=== PATIENT | male | born 1945 | race Caucasian/White ===

== ENCOUNTER 2018-01-29 20:09 | Inpatient (IN) | payer OTHER, MEDICARE ==
[~2018-01-29] VITALS: Ht 185.4 cm; Wt 84.5 kg
[~2018-01-29 20:09] MED LIST: ALBU0.086 INH; ALBU8I INH; HYDR-3533 PO; INSU100V3 SQ; SYMB160A INH; WARF5TAB PO
[2018-01-29] MEDS ORDERED: IOHEXOL 350 MG/ML 10 ML VIAL (for RAD DIAG) IVCONTRAST ONE (20:10)
[2018-01-29 20:12] VITALS: BP 124/58; PULSE 139; RESP 18; TEMP 101.5; O2SAT 93
[2018-01-29] MEDS ORDERED: CEFEPIME INJ 2,000 MG in SODIUM CHLORIDE 0.9% INJ 100 ML IV ONE (20:30)
[2018-01-29] MEDS ORDERED: VANCOMYCIN INJ 1,000 MG in SODIUM CHLOR 0.9% 250 ML INJ 250 ML IV ONE (20:30)
[2018-01-29] MEDS ORDERED: SODIUM CHLOR 0.9% 1000 ML INJ 1,000 ML IV ONE ×4 (20:30→23:00)
[2018-01-29] MEDS ORDERED: ACETAMINOPHEN 325 MG TAB PO ONE (20:30)
[2018-01-29] MEDS ORDERED: SYMB160A INH (20:32)
[2018-01-29] MEDS ORDERED: GUAI600T11 PO (20:32)
[2018-01-29] MEDS ORDERED: HYDR-3516 PO (20:32)
[2018-01-29] MEDS ORDERED: ALBU6.7H INH (20:32)
[2018-01-29] MEDS ORDERED: CYCL10TA PO (20:32)
[2018-01-29] MEDS ORDERED: VENL37.5 PO (20:32)
[2018-01-29] MEDS ORDERED: MAGN400T2 PO (20:32)
[2018-01-29] MEDS ORDERED: PROP20TA3 PO (20:32)
[2018-01-29] MEDS ORDERED: PROC10TA PO (20:32)
--- NOTE | 2018-01-29 20:45 | RADRPT ---
EXAM DATE: 01/29/2018 8:42 PM EDT AGE/SEX: 72 years / Male INDICATIONS: Shortness of breath. CLINICAL DATA: This is the patient's initial encounter. Patient reports that signs and symptoms have been present for 2 days and indicates a pain score of 0/10. MEDICAL/SURGICAL HISTORY: . Carcinoma, right lung. None. COMPARISON: [facility] [place], 09[place]. . FINDINGS: Increased density is identified in the right lung along the lateral pleural margin and base. Left flakita g is clear. Heart is normal in size. Postsurgical clips are identified in the right hilar region. CONCLUSION: Pleural-parenchymal opacity in the right lung which may be related to previous surgery or may represe nt pleural effusion with underlying airspace disease. Status post right thoracotomy Clear left lung. Electronically signed by: Edmund Carpenter MD 01/29/2018 8:44 PM EDT
[2018-01-29 20:51] VITALS: PULSE 135; RESP 18; O2SAT 94
[2018-01-29 20:56] VITALS: BP 123/72; PULSE 141; RESP 18; O2SAT 94
[2018-01-29 21:15] LABS: AUTOMATED NEUTROPHIL # 8.8 TH/MM3 (1.8-7.7); BASOPHIL # 0.1 TH/MM3 (0-0.2); BASOPHIL % 0.8 % (0.0-2.0); EOSINOPHIL % 0.4 % (0.0-4.0); HEMATOCRIT 26.6 % (39.0-51.0); HEMOGLOBIN 8.8 GM/DL (13.0-17.0); LYMPH % 10.5 % (9.0-44.0); LYMPHOCYTE # 1.1 TH/MM3 (1.0-4.8); MEAN CELL VOLUME 86.3 FL (80.0-100.0); MEAN CORPUSCULAR HEMOGLOBIN 28.6 PG (27.0-34.0); MEAN CORPUSCULAR HGB CONC 33.2 % (32.0-36.0); MEAN PLATELET VOLUME 8.9 FL (7.0-11.0); MONO % 2.4 % (0.0-8.0); MONOCYTE # 0.2 TH/MM3 (0-0.9); NEUT % 85.9 % (16.0-70.0); PLATELET COUNT 150 TH/MM3 (150-450); RED BLOOD COUNT 3.09 MIL/MM3 (4.50-5.90); RED CELL DISTRIBUTION WIDTH 17.3 % (11.6-17.2); WHITE BLOOD COUNT 10.3 TH/MM3 (4.0-11.0)
[2018-01-29 21:16] VITALS: BP 124/80; PULSE 133; RESP 18; TEMP 99.3; O2SAT 92
--- NOTE | 2018-01-29 21:25 | EKG ---
Date Performed: 01/29/2018 Time Performed: 20:12:35 PTAGE: 72 years EKG: SINUS TACHYCARDIA LEFT AXIS DEVIATION LOW QRS VOLTAGE IN PRECORDIAL LEADS NONSPECIFIC T-WAV E ABNORMALITY ABNORMAL ECG PREVIOUS TRACING : 04/26/2016 08.43 Compared to previous tracing, heart rate has increased, non specific T wave abnormality is now present. DOCTOR: Jaleel Garza Interpretating Date/Time 01/29/2018 21:23:30
[2018-01-29 21:26] LABS: INTERNATIONAL NORMALIZED RATIO 1.1 RATIO; PROTHROMBIN TIME - PATIENT 11.3 SEC (9.8-11.6)
--- NOTE | 2018-01-29 21:31 | PD ---
HPI Chief Complaint: Anxiety Time Seen by Provider: 20:26 Travel History International Travel<30 days: No Contact w/Intl Traveler<30days: No Traveled to known affect area: No History of Present Illness HPI 71-year-old male presents to the emergency department from home by EMS transport for generalized weakness and feeling anxious. Patient was identified in route to the hospital to be in a sinus tachycardia with a rate of 140 bpm was administered normal saline 400 cc bolus. Patient upon arrival to the emergency department was noted to have fever 10 1F patient states he has not felt well since this morning. Patient denies: headache visual disturbance sinus pressure drainage sore throat earache neck pain chest pain shortness of breath productive cough hemoptysis abdominal pain vomiting diarrhea hematemesis coffee-ground emesis melena hematochezia. Patient has colostomy secondary to previous colectomy. Patient reportedly was hospitalized in the [place] recently for GI bleed underwent scoping required transfusion but has not had any blood in his stool subsequently. No urinary symptoms no flank pain no skin rash redness warmth joint pain or swelling. Patient was unaware that he had a fever. Does not report any shaking chills. Just this felt agitated. Denies being confused or change in mentation. Family is not at bedside. Patient does have lung cancer and is currently undergoing chemotherapy every 3 weeks on Tuesday and last chemotherapy was Tuesday of this week. Patient has been on warfarin therapy in the past but denies taking any warfarin at this time. [facility] Past Medical History Narrative Medical Lung cancer chemotherapy diabetes hypertension arthritis kidney stones Crohn's colectomy with colostomy herniorrhaphy; occasional alcohol use; nursing notes reviewed Hx Anticoagulant Therapy: Yes (WARFRIN ) Arthritis: Yes Cancer: Yes (skin bcc LUNG) Cardiovascular Problems: No High Cholesterol: No Chemotherapy: Yes Diabetes: Yes Patient Takes Glucophage: No Diminished Hearing: No Endocrine: Yes Gastrointestinal Disorders: Yes (hx of chrohns ) GERD: Yes Genitourinary: Yes (hx of kidney stones) Hepatitis: No Hiatal Hernia: No Hypertension: Yes Immune Disorder: No Kidney Stones: Yes (TWICE) Musculoskeletal: Yes (hx of fractured neck ) Neurologic: No Psychiatric: No Reproductive: Yes (pt has a penile implant) Thyroid Disease: No Past Surgical History Abdominal Surgery: Yes (colon resection with colostomy hernia repair) AICD: No Body Medical Devices: penile implants abd mesh Genitourinary Surgery: Yes (penile implant) Joint Replacement: No Oral Surgery: Yes (implants) Pacemaker: No Other Surgery: Yes Social History Alcohol Use: Yes (couple times a year) Tobacco Use: No (08/2008) Substance Use: No Allergies-Medications (Allergen,Severity, Reaction): Coded Allergies: No Known Allergies (Unverified , 04/26/16) Reported Meds & Prescriptions Reported Meds & Active Scripts Active Reported Proventil Hfa 6.7 GM Inh (Albuterol Sulfate) 90 Mcg/Act Aer 2 Puff INH Q4-6H PRN Symbicort Inh (Budesonide/Formoterol Fumarate) 160-4.5 Mcg/Act Aero 2 Puff INH Q12HR Prochlorperazine Maleate 10 Mg Tab 10 Mg PO Q6H PRN Flexeril (Cyclobenzaprine HCl) 10 Mg Tab 10 Mg PO DAILY Magnesium Oxide 400 Mg Tab 400 Mg PO HS Propranolol (Propranolol HCl) 20 Mg Tab 20 Mg PO Q12HR Hydrocodone-Acetaminophen 5-325 mg Tab 1 Tab PO Q4H PRN Effexor (Venlafaxine HCl) 37.5 Mg Tab 37.5 Mg PO DAILY Mucus Relief ER (Guaifenesin) 600 Mg Tab 400 Mg PO DAILY PRN Review of Systems Except as stated in HPI: all other systems reviewed are Neg General / Constitutional: No: Fever, Chills HENT: No: Congestion Cardiovascular: No: Chest Pain or Discomfort Respiratory: No: Shortness of Breath Gastrointestinal: No: Nausea, Abdominal Pain, Hematemesis, Hematochezia Genitourinary: No: Dysuria, Flank Pain Musculoskeletal: No: Myalgias, Arthralgias Skin: No Rash Neurologic: Positive: Weakness, No: Dizziness, Syncope, Focal Abnormalities, Coordination Problem Psychiatric: Positive: Anxiety Hematologic/Lymphatic: No: Easy Bruising (stopped warfarin) Physical Exam Narrative GENERAL: Well-developed well-nourished elderly male in no acute distress no respiratory distress; HR: 139 ;RR:18 ; T: 101.5 F ;BP: 128/58;O2sat RA: 93% SKIN: Warm and dry. HEAD: Normocephalic. EYES: No scleral icterus. No injection or drainage. NECK: Supple, trachea midline. No JVD or lymphadenopathy. CARDIOVASCULAR: Regular rate and rhythm without murmurs, gallops, or rubs. RESPIRATORY: Breath sounds equal bilaterally. No accessory muscle use. GASTROINTESTINAL: Abdomen soft, non-tender, colostomy in place, nondistended. MUSCULOSKELETAL: No cyanosis, or edema. BACK: Nontender without obvious deformity. No CVA tenderness. Data Data Last Documented VS Vital Signs Date Time Temp Pulse Resp B/P (MAP) Pulse Ox O2 Delivery O2 Flow Rate FiO2 01/29/18 22:55 97.9 130 22 122/56 (78) 95 Room Air Orders Orders Sepsis Workup Initiated (01/29/18 ) Electrocardiogram (01/29/18 20:26) Complete Blood Count With Diff (01/29/18 20:26) Comprehensive Metabolic Panel (01/29/18 20:26) Prothrombin Time / Inr (Pt) (01/29/18 20:) Act Partial Throm Time (Ptt) (01/29/18 20:26) Lactic Acid Sepsis Protocol (01/29/18 20:26) Magnesium (Mg) (01/29/18 20:26) Lipase (01/29/18 20:26) Ckmb (Isoenzyme) Profile (01/29/18 20:26) Troponin I (01/29/18 20:26) Urinalysis - C+S If Indicated (01/29/18 20:26) Influenzae A/B Antigen (01/29/18 20:26) Blood Culture (01/29/18 20:26) Chest, Single Ap (01/29/18 20:26) Blood Glucose (01/29/18 20:26) Ecg Monitoring (01/29/18 20:26) Iv Access Insert/Monitor (01/29/18 20:26) Oximetry (01/29/18 20:26) Oxygen Administration (01/29/18 20:26) Acetaminophen (Tylenol) (01/29/18 20:30) Cefepime Inj (Maxipime Inj) (01/29/18 20:30) Vancomycin Inj (Vancomycin Inj) (01/29/18 20:30) Sodium Chlor 0.9% 1000 Ml Inj (Ns 1000 M (01/29/18 20:30) Type And Screen (01/29/18 21:21) Sodium Chlor 0.9% 1000 Ml Inj (Ns 1000 M (01/29/18 21:45) Ct Pulmonary Angiogram (01/29/18 ) Ondansetron Inj (Zofran Inj) (01/29/18 22:45) Sodium Chloride 0.9... W/Pantoprazole In (01/29/18 22:44) Sodium Chloride 0.9... W/Pantoprazole In (01/29/18 22:44) Metoclopramide Inj (Reglan Inj) (01/29/18 22:45) Hemoglobin (Hgb) (01/29/18 22:54) Sodium Chlor 0.9% 1000 Ml Inj (Ns 1000 M (01/29/18 23:00) Sodium Chlor 0.9% 1000 Ml Inj (Ns 1000 M (01/29/18 23:00) Ct Abd/Pel W Iv Contrast(Rout) (01/29/18 ) Metoprolol Tartrate Inj (Lopressor Inj) (01/29/18 23:30) Iohexol 350 Inj (Omnipaque 350 Inj) (01/29/18 20:10) Promethazine Inj (Phenergan Inj) (01/30/18 00:00) Red Blood Cells (Rbc) (01/29/18 23:59) Blood Product Administration (01/29/18 23:59) Sodium Chlor 0.9% 250 Ml Inj (Ns 250 Ml (01/30/18 00:00) Urinary Catheter Insert/Apply (01/29/18 23:59) Ng Gastric Tube Insert/Monitor (01/29/18 23:59) Place Ng Tube To Low Intermit (01/29/18 23:59) Admit Order (Ed Use Only) (01/30/18 ) Sewing Machine Operator Zipper / Telemetry CHARLEE.Q8H (01/30/18 00:05) Diet Npo (01/30/18 Breakfast) Activity Bed Rest (01/30/18 00:05) Notify Dr: Other (01/30/18 00:05) Labs Laboratory Tests Test 01/29/18 20:38 01/29/18 21:18 01/29/18 23:40 White Blood Count 10.3 TH/MM3 Red Blood Count 3.09 MIL/MM3 Hemoglobin 8.8 GM/DL 6.9 GM/DL Hematocrit 26.6 % Mean Corpuscular Volume 86.3 FL Mean Corpuscular Hemoglobin 28.6 PG Mean Corpuscular Hemoglobin Concent 33.2 % Red Cell Distribution Width 17.3 % Platelet Count 150 TH/MM3 Mean Platelet Volume 8.9 FL Neutrophils (%) (Auto) 85.9 % Lymphocytes (%) (Auto) 10.5 % Monocytes (%) (Auto) 2.4 % Eosinophils (%) (Auto) 0.4 % Basophils (%) (Auto) 0.8 % Neutrophils # (Auto) 8.8 TH/MM3 Lymphocytes # (Auto) 1.1 TH/MM3 Monocytes # (Auto) 0.2 TH/MM3 Eosinophils # (Auto) 0.0 TH/MM3 Basophils # (Auto) 0.1 TH/MM3 CBC Comment AUTO DIFF Differential Total Cells Counted 100 Neutrophils % (Manual) 85 % Band Neutrophils % 7 % Lymphocytes % 7 % Neutrophils # (Manual) 9.6 TH/MM3 Myelocytes 1 % Differential Comment FINAL DIFF MANUAL Platelet Estimate LOW Platelet Morphology Comment NORMAL Prothrombin Time 11.3 SEC Prothromb Time International Ratio 1.1 RATIO Activated Partial Thromboplast Time 33.2 SEC Blood Urea Nitrogen 22 MG/DL Creatinine 1.46 MG/DL Random Glucose 157 MG/DL Total Protein 6.0 GM/DL Albumin 2.3 GM/DL Calcium Level 8.1 MG/DL Magnesium Level 1.5 MG/DL Alkaline Phosphatase 98 U/L Aspartate Amino Transf (AST/SGOT) 19 U/L Alanine Aminotransferase (ALT/SGPT) 9 U/L Total Bilirubin 0.6 MG/DL Sodium Level 136 MEQ/L Potassium Level 4.4 MEQ/L Chloride Level 101 MEQ/L Carbon Dioxide Level 26.3 MEQ/L Anion Gap 9 MEQ/L Estimat Glomerular Filtration Rate 47 ML/MIN Lactic Acid Level 2.2 mmol/L 1.7 mmol/L Total Creatine Kinase 44 U/L Troponin I LESS THAN 0.02 NG/ML Lipase 77 U/L Urine Color YELLOW Urine Turbidity CLEAR Urine pH 6.5 Urine Specific [place] 1.022 Urine Protein 30 mg/dL Urine Glucose (UA) NEG mg/dL Urine Ketones TRACE mg/dL Urine Occult Blood TRACE Urine Nitrite NEG Urine Bilirubin NEG Urine Urobilinogen LESS THAN 2.0 MG/DL Urine Leukocyte Esterase SMALL Urine RBC 1 /hpf Urine WBC 5 /hpf Urine Squamous Epithelial Cells 3 /hpf Urine Renal Epithelial Cells <1 /hpf Urine Mucus FEW /lpf Microscopic Urinalysis Comment CATH-CULT NOT IND MDM Medical Decision Making Medical Screen Exam Complete: Yes Emergency Medical Condition: Yes Medical Record Reviewed: Yes (Cholecystectomy 04/27/16 Dr. 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 Status post right thoracotomy Clear left lung. CBC & BMP Diagram 01/29/18 20:38 Total Protein 6.0 L, Albumin 2.3 L, Calcium Level 8.1 L, Magnesium Level 1.5, Alkaline Phosphatase 98, Aspartate Amino Transf (AST/SGOT) 19, Alanine Aminotransferase (ALT/SGPT) 9 L, Total Bilirubin 0.6 Vital Signs Date Time Temp Pulse Resp B/P (MAP) Pulse Ox O2 Delivery O2 Flow Rate FiO2 01/29/18 21:16 99.3 133 18 124/80 (95) 92 Room Air 01/29/18 20:56 141 18 123/72 (89) 94 Room Air 01/29/18 20:51 135 18 94 Room Air 01/29/18 20:51 93 Room Air 01/29/18 20:12 101.5 139 18 124/58 (80) 93 Differential Diagnosis Sepsis, pneumonia, enteritis, UTI, bacteremia, neutropenia Narrative Course IV access obtained patient placed on log chipper operator with continuous pulse oximetry; specimens collected for sepsis protocol patient given cefepime 2 g IV piggyback and vancomycin 1 g IV piggyback acetaminophen 650 mg and a bolus of normal saline Patient feeling improved additional liter of normal saline administered for total 30 cc/kg bolus; chest x-ray shows right pleural effusion left lower lung infiltrate. Patient identified to have normal total white cell count however does have elevated lactic acid meets sepsis criteria has received IV antibiotics and temperature has decreased after antipyretic therapy at bedside reports that yesterday he had his right-sided pleural effusion drained at home has an indwelling drain that is indwelling for intermittent thoracentesis Patient sent for CT pulmonary angiogram Critical Care Narrative Aggregate critical care time was 35 minutes. Time to perform other separately billable procedures was not included in the critical care time. My time did not include minutes spent treating any other patients simultaneously or on activities that did not directly contribute to the patient's treatment. The services I provided to this patient were to treat and/or prevent clinically significant deterioration that could result in: Septic shock, hemorrhagic shock , I provided critical care services requiring my management, as noted below: Chart data review, documentation time, medication orders and management, vital sign assessments/reviewing monitor data, ordering and reviewing lab tests, ordering and interpreting/reviewing x-rays and diagnostic studies, care of the patient and discussion of the patient with the admitting physicians. Sepsis Criteria SIRS Criteria (2 or more): Temp > 100.9 or < 96.8, Heart rate over 90 Sepsis Criteria (SIRS+source): Infect source susp/known (lung) Severe Sepsis (+one): Lactate >2 Physician Communication Physician Communication discussed with and accepted by Dr Tian Diagnosis Primary Impression: Sepsis Additional Impressions: Pleural effusion, right Adenocarcinoma of lung Lung infiltrate Admitting Information Admitting Physician Requests: Admit Awa Archibald MD January 29, 2018 21:30
[2018-01-29 21:34] LABS: ALBUMIN 2.3 GM/DL (3.4-5.0); AST (GOT) 19 U/L (15-37); BICARBONATE 26.3 MEQ/L (21.0-32.0); BLOOD UREA NITROGEN 22 MG/DL (7-18); CALCIUM 8.1 MG/DL (8.5-10.1); CHLORIDE 101 MEQ/L (98-107); CREATININE 1.46 MG/DL (0.60-1.30); GLOMERULAR FILTRATION RATE 47 ML/MIN (>89); GLUCOSE,RANDOM 157 MG/DL (74-106); MAGNESIUM 1.5 MG/DL (1.5-2.5); SODIUM (NA) 136 MEQ/L (136-145)
[2018-01-29 21:35] LABS: ALT (GPT) 9 U/L (12-78)
[2018-01-29 21:38] LABS: LACTIC ACID SEPSIS PROTOCOL 2.2 mmol/L (0.4-2.0)
[2018-01-29 21:39] LABS: ALKALINE PHOSPHATASE 98 U/L (45-117); TOTAL BILIRUBIN ADULT 0.6 MG/DL (0.2-1.0); TROPONIN I LESS THAN 0.02 NG/ML (0.02-0.05)
[2018-01-29 21:57] LABS: BILIRUBIN, URINE NEG (NEG); BLOOD, URINE TRACE (NEG); GLUCOSE,URINE NEG (NEG); KETONE, URINE TRACE mg/dL (NEG); MUCUS URINE FEW /lpf (OCC); NITRITE,URINE NEG (NEG); PH, URINE 6.5 (5.0-8.5); RENAL EPITHELIAL CELLS <1 /hpf; SQUAMOUS EPITHELIAL CELL URINE 3 /hpf (0-5); URINE COLOR YELLOW (YELLW/STRAW); URINE LEUKOCYTE ESTERASE SMALL (NEG)
[2018-01-29 22:10] LABS: BANDS 7 % (0-6); LYMPHOCYTES 7 % (9-44); MYELOCYTES 1 % (0-0); NEUTROPHIL # MANUAL DIFF 9.6 TH/MM3 (1.8-7.7); POLYS (SEG NEUTROPHILS) 85 % (16-70)
[2018-01-29 22:30] VITALS: BP 123/66; PULSE 120; RESP 18; O2SAT 95
[2018-01-29] MEDS ORDERED: PANTOPRAZOLE INJ 80 MG in SODIUM CHLORIDE 0.9% INJ 35 ML IV ONE (22:44)
[2018-01-29] MEDS ORDERED: ONDANSETRON HCL 4 MG/2 ML VIAL IV PUSH ONE (22:45)
[2018-01-29] MEDS ORDERED: METOCLOPRAMIDE HCL 10 MG/2 ML VIAL IV PUSH ONE (22:45)
[2018-01-29 22:55] VITALS: BP 122/56; PULSE 130; RESP 22; TEMP 97.9; O2SAT 95
[2018-01-29] MEDS ORDERED: SODIUM CHLORID 0.9% 500 ML INJ 500 ML IV ONE (23:00)
[2018-01-29] MEDS ORDERED: METOPROLOL TARTRATE 5 MG/5 ML VIAL IV PUSH ONE (23:30)
--- NOTE | 2018-01-29 23:36 | RADRPT ---
EXAM DATE: 01/29/2018 11:22 PM EDT AGE/SEX: 72 years / Male INDICATIONS: Shortness of breath. History of lung cancer. CLINICAL DATA: This is the patient's initial encounter. Patient reports that signs and symptoms have been present for 1 day and indicates a pain score of 0/10. MEDICAL/SURGICAL HISTORY: Carcinoma, lung. Diabetes mellitus type II. Crohn?s disease. Colon rese ction. Inguinal hernia repair. Right thoracotomy RADIATION DOSE: 18.36 CTDI (mGy) COMPARISON: [facility] – [place], [place] THORAX W/O CONTRAST, 09/12/2014. . TECHNIQUE: Volumetric scanning was performed using a multi-row detector CT scanner during bolus infu vivian of 95 ml Omnipaque 350 (iohexol) nonionic water-soluble contrast as a cumulative dose for multi ple exams. The data was post processed with a variety of visualization algorithms including full volu me maximum intensity projection and sliding thin slab reformation. Using automated exposure control and adjustment of the mA and/or kV according to patient size, radiation dose was kept as low as reaso nably achievable to obtain optimal diagnostic quality images. FINDINGS: There is a stent within the brachiocephalic vein on the right side and part of it is not opacified pr obably due to contrast not getting inside this stent since injection was done on the left side. There is a large right pleural effusion without significant pleural thickening highly suspicious for pleur al-based metastatic disease in maximum thickness measures almost 1 cm. Hazy parenchymal opacities pre sent in the left upper lobe posteriorly and there are COPD changes in the lungs. There is also parenc hymal consolidation in right perihilar area partially extending into the right upper lobe. Possibilit y of underlying mass in this location should also be entertained and overall masslike area measures 4 .6 cm in size. There is a cyst within the spleen measures almost 3 cm with an approximate 2 cm cyst i n the left kidney. There is no evidence of PE for technique. CONCLUSION: 1. There is no evidence of PE for technique. 2. Loculated right pleural effusion with pleural thickening highly suspicious for pleural-based meta static disease. 3. Bilateral parenchymal infiltrates may represent pneumonia and on the right side may be partially due to compressed lung and/or postobstructive pneumonitis. Masslike area is seen in right upper lobe extending to the right hilum. Electronically signed by: Arnold Guevara MD 01/29/2018 11:35 PM EDT
--- NOTE | 2018-01-29 23:45 | RADRPT ---
EXAM DATE: 01/29/2018 11:24 PM EDT AGE/SEX: 72 years / Male INDICATIONS: Nausea and vomting. History of lung cancer. CLINICAL DATA: This is the patient's initial encounter. Patient reports that signs and symptoms have been present for 1 day and indicates a pain score of 0/10. MEDICAL/SURGICAL HISTORY: Carcinoma, lung. Diabetes mellitus type II. Crohn?s disease. Colon resection. Right thoracotomy ORAL CONTRAST: No oral contrast ingested. RADIATION DOSE: 11.20 CTDI (mGy) [place] [facility] [place]/O CONTRAST, 04/26/2016. . TECHNIQUE: Multiple contiguous axial images were obtained through the abdomen and pelvis following b olus infusion of 95 ml Omnipaque 350 (iohexol) nonionic water-soluble contrast as a cumulative dose for multiple exams. No oral contrast ingested. Using automated exposure control and adjustment of t he mA and/or kV according to patient size, the radiation dose was kept as low as reasonably achievabl e to obtain optimal diagnostic quality images. FINDINGS: Abdomen CT: The liver, pancreas, adrenals are unremarkable. Approximate 2.9 cm cyst is present in the posterior p ortion of the spleen and benign in appearance with a simple cyst in the left kidney measures almost 2 .9 cm in size not changed since 2016. There are additional tiny cysts in the kidneys bilaterally. The re is no evidence for any appreciable pathological adenopathy, free fluid, or bowel obstruction. Ther e are findings in the lower chest discussed on the patient's chest CT. There are atherosclerotic drew cifications involving the aorta and iliac arteries chronic in nature. Small hiatal hernia is seen. Pelvic CT: There is no evidence for mass, abscess formation, or any significant adenopathy within the pelvis. P enile implant is present. Osteotomy site is present on the left side and there is a mesh in the anter ior abdominal wall. There is vague area of approximate 1.8 cm sclerosis involving the left sacrum dawn r the SI joint posteriorly nonspecific in regards to metastatic disease with adjacent degenerative ch ana luisa in the SI joint not significantly changed since 2015 CONCLUSION: Chronic and postsurgical changes and otherwise unremarkable. Electronically signed by: Arnold Guevara MD 01/29/2018 11:44 PM EDT
[2018-01-30] VITALS (39 sets, daily range): BP systolic 99–146; BP diastolic 50–90; PULSE 89–128; RESP 16–29; TEMP 97.2–99.1; O2SAT 92–98
[2018-01-30] MEDS ORDERED: PROMETHAZINE INJ 25 MG/ML VIAL IM ONE
[2018-01-30] MEDS ORDERED: SODIUM CHLOR 0.9% 250 ML INJ 250 ML IV ONE
[2018-01-30] MEDS: PANTOPRAZOLE INJ 80 MG in SODIUM CHLORIDE 0.9% INJ 100 ML IV SCH ×3 (00:04→18:31)
[2018-01-30] MEDS ORDERED: SODIUM CHLOR 0.9% 1000 ML INJ 1,000 ML IV SCH (00:29)
[2018-01-30] MEDS ORDERED: SODIUM CHLOR 0.9% 1000 ML INJ 1,000 ML IV ONE ×2 (00:29)
[2018-01-30] MEDS ORDERED: SODIUM CHLOR 0.9% 1000 ML INJ 100 ML IV ONE (00:29)
[2018-01-30] MEDS ORDERED: LACTULOSE SYRUP 20 GM/30 ML CUP PO PRN (00:30)
[2018-01-30] MEDS ORDERED: MAGNESIUM HYDROXIDE SUSP 30 ML CUP PO PRN (00:30)
[2018-01-30] MEDS ORDERED: guaiFENesin E.R. 600 MG TAB PO PRN (00:30)
[2018-01-30] MEDS ORDERED: RESP: ALBUTEROL 2.5 MG/IPRATROPIUM 0.5 MG NEB (PRN) INH (00:30)
[2018-01-30] MEDS ORDERED: NURSING INFORMATION XX SCH (00:30)
[2018-01-30] MEDS ORDERED: BISACODYL 10 MG SUPP RECTAL PRN (00:30)
[2018-01-30] MEDS ORDERED: ONDANSETRON HCL 4 MG/2 ML VIAL IV PUSH PRN (00:30)
[2018-01-30] MEDS ORDERED: PROCHLORPERAZINE MALEATE 10 MG TAB PO PRN (00:30)
[2018-01-30] MEDS ORDERED: SENNOSIDES 8.6 MG TAB PO PRN (00:30)
[2018-01-30] MEDS ORDERED: ACETAMINOPHEN 325 MG TAB PO PRN (00:30)
[2018-01-30] MEDS ORDERED: Vancomycin Consult Pharmacy 1 EA OTHER SCH (00:30)
[2018-01-30] MEDS ORDERED: CHLORHEXIDINE GLUCONATE 2 % 1 PACK (2 CLOTHS) TOP PRN (00:30)
--- NOTE | 2018-01-30 00:59 | HHI.HP ---
[facility] Service Critical Care Medicine Primary Care Physician [facility] Admission Diagnosis sepsis; pneumonia; upper gi bleed w/ anemia; Lung CA Diagnosis: Travel History International Travel<30 Days: No Contact w/Intl Traveler <30 Da: No Traveled to Known Affected Are: No History of Present Illness 71-year-old male presents for generalized weakness and feeling anxious. Patient was identified in route to the hospital to be in a sinus tachycardia with a rate of 140 bpm was administered normal saline 400 cc bolus. In the emergency department he was found to be febrile with a temperature of 101F. The patient states he has not felt well since this morning. He has colostomy secondary to previous colectomy due to Crohn's disease. Patient reportedly was hospitalized in the [place] recently for GI bleed underwent scoping required transfusion but has not had any blood in his stool subsequently. No urinary symptoms no flank pain no skin rash redness warmth joint pain or swelling. Patient was unaware that he had a fever. Patient does have a lung cancer and is currently undergoing chemotherapy every 3 weeks on Tuesday and last chemotherapy was Tuesday of this week. Patient has been on warfarin therapy in the past but denies taking any warfarin at this time. He denies: headache visual disturbance sinus pressure drainage sore throat earache neck pain chest pain shortness of breath productive cough hemoptysis abdominal pain vomiting diarrhea hematemesis coffee-ground emesis melena hematochezia. In the emergency department he vomited large amounts fluid that is positive for Hemoccult. The fluid boluses resuscitation his last H&H was below 7 . He is getting transfused with PRBCs Review of Systems Constitutional: COMPLAINS OF: Diaphoretic episodes, Fatigue, DENIES: Fever, Weight gain, Weight loss, Chills, Dizziness, Change in appetite, Night Sweats Endocrine: DENIES: Heat/cold intolerance, Polydipsia, Polyuria, Polyphagia Eyes: DENIES: Blurred vision, Diplopia, Eye inflammation, Eye pain, Vision loss , Photosensitivity, Double Vision Ears, nose, mouth, throat: DENIES: Tinnitus, Hearing loss, Vertigo, Nasal discharge, Oral lesions, Throat pain, Hoarseness, Ear Pain, Running Nose, Epistaxis, Sinus Pain, Toothache, Odynophagia Respiratory: DENIES: Apneas, Cough, Snoring, Wheezing, Hemoptysis, Sputum production, Shortness of breath Cardiovascular: DENIES: Chest pain, Palpitations, Syncope, Dyspnea on Exertion , PND, Lower Extremity Edema, Orthopnea, Claudication Gastrointestinal: COMPLAINS OF: Nausea, Vomiting, DENIES: Abdominal pain, Black stools, Bloody stools, Constipation, Diarrhea, Difficulty Swallowing, Anorexia Genitourinary: DENIES: Sexual dysfunction, Urinary frequency, Urinary incontinence, Urgency, Hematuria, Dysuria, Nocturia, Penile Discharge, Testicular Pain, Testicular Swelling Musculoskeletal: DENIES: Joint pain, Muscle aches, Stiffness, Joint Swelling, Back pain, Neck pain Integumentary: DENIES: Abnormal pigmentation, Nail changes, Pruritus, Rash Hematologic/lymphatic: DENIES: Bruising, Lymphadenopathy Immunologic/allergic: DENIES: Eczema, Urticaria Neurologic: DENIES: Abnormal gait, Headache, Localized weakness, Paresthesias, Seizures, Speech Problems, Tremor, Poor Balance Psychiatric: DENIES: Anxiety, Confusion, Mood changes, Depression, Hallucinations, Agitation, Suicidal Ideation, Homicidal Ideation, Delusions Past Family Social History Allergies: Coded Allergies: No Known Allergies (Unverified , 04/26/16) Past Medical History Carcinoma of the lung Crohn's disease History of superior vena cava syndrome COPD Past Surgical History IVC filter Colon resection Penile implant Superior vena cava stent Reported Medications Reported Meds & Active Scripts Active Reported Proventil Hfa 6.7 GM Inh (Albuterol Sulfate) 90 Mcg/Act Aer 2 Puff INH Q4-6H PRN Symbicort Inh (Budesonide/Formoterol Fumarate) 160-4.5 Mcg/Act Aero 2 Puff INH Q12HR Prochlorperazine Maleate 10 Mg Tab 10 Mg PO Q6H PRN Flexeril (Cyclobenzaprine HCl) 10 Mg Tab 10 Mg PO DAILY Magnesium Oxide 400 Mg Tab 400 Mg PO HS Propranolol (Propranolol HCl) 20 Mg Tab 20 Mg PO Q12HR Hydrocodone-Acetaminophen 5-325 mg Tab 1 Tab PO Q4H PRN Effexor (Venlafaxine HCl) 37.5 Mg Tab 37.5 Mg PO DAILY Mucus Relief ER (Guaifenesin) 600 Mg Tab 400 Mg PO DAILY PRN Active Ordered Medications Current Medications Medications (Trade) Dose Ordered Sig/Felicia Route PRN Reason Start Time Stop Time Status Last Admin Dose Admin Pantoprazole Sodium 80 mg/ Sodium Chloride 100 ml @ 10 mls/hr Q10H IV 01/29/18:44 01/30/18 00:04 Sodium Chloride 250 ml @ 15 mls/hr ONCE ONCE IV 01/30/18 00:00 01/30/18 16:39 Budesonide/ Formoterol Fumarate (Symbicort 160-4.5 Mcg Inh) 2 puff Q12HR INH 01/30/18 09:00 Guaifenesin (Mucinex Er) 400 mg DAILY PRN PO CHEST CONGESTION AND/OR COUGH 01/30/18 00:30 Prochlorperazine Maleate (Compazine) 10 mg Q6H PRN PO NAUSEA OR VOMITING 01/30/18 00:30 Venlafaxine HCl (Effexor Xr) 37.5 mg DAILY PO 01/30/18 09:00 Sodium Chloride 1,000 ml @ 154 mls/hr Q6H30M IV 01/30/18 00:29 Sodium Chloride (NS Flush) 2 ml UNSCH PRN IV FLUSH FLUSH AFTER USING IV ACCESS 01/30/18 00:30 Sodium Chloride (NS Flush) 2 ml BID IV FLUSH 01/30/18 09:00 Acetaminophen (Tylenol) 650 mg Q6H PRN PO PAIN 1- 5 AND/OR FEVER >101F 01/30/18 00:30 Hydromorphone HCl (Dilaudid Pf Inj) 1 mg Q4H PRN IV PUSH PAIN SCALE 6 TO 10 01/30/18 00:30 Pantoprazole Sodium (Protonix Inj) 40 mg Q12H IV PUSH 01/30/18 00:30 Ondansetron HCl (Zofran Inj) 4 mg Q6H PRN IV PUSH NAUSEA OR VOMITING 01/30/18 00:30 Temazepam (Restoril) 15 mg HS PRN PO INSOMNIA 01/30/18 00:30 Albuterol/ Ipratropium (Duoneb Neb) 1 ampule Q6HR NEB INH 01/30/18 04:00 Albuterol/ Ipratropium (Duoneb Neb) 1 ampule Q2HR NEB PRN INH WHEEZING 01/30/18 00:30 Miscellaneous Information ([facility] Nursing Information) 1 [id number] XX 01/30/18 00:30 Chlorhexidine Gluconate (Chlorhexidine 2% Cloth) 3 pack Taper DAILY@04 TOP 01/30/18 04:00 01/26/19 03:59 Chlorhexidine Gluconate (Chlorhexidine 2% Cloth) 3 pack UNSCH PRN TOP HYGIENIC CARE 01/30/18 00:30 Senna/Docusate Sodium (Susan-Colace) 1 tab BID PO 01/30/18 09:00 Magnesium Hydroxide (Milk Of Magnesia Liq) 30 ml Q12H PRN PO Mild constipation 01/30/18 00:30 Sennosides (Senokot) 17.2 mg Q12H PRN PO Moderate constipation 01/30/18 00:30 Bisacodyl (Dulcolax Supp) 10 mg DAILY PRN RECTAL SEVERE CONSITIPATION / IF NPO 01/30/18 00:30 Lactulose (Lactulose Liq) 30 ml DAILY PRN PO SEVERE CONSITIPATION/ IF PO 01/30/18 00:30 Pharmacy Profile Note 0 ml @ 0 mls/hr UNSCH XX 01/30/18 00:30 UNV Piperacillin Sod/ Tazobactam Sod 100 ml @ 200 mls/hr Q6H IV 01/30/18 00:30 Sodium Chloride 1,000 ml @ 1,000 mls/hr Q1H ONCE IV 01/30/18 00:29 01/30/18 01:28 Sodium Chloride 1,000 ml @ 1,000 mls/hr Q1H ONCE IV 01/30/18 00:29 01/30/18 01:28 Family History Brother at 40 from lung cancer Family history of stomach cancer Social History The patient quit smoking in 9 years ago, used to smoke 2 packs per day for 40 years Social drinking No illicit drug abuse Physical Exam Vital Signs Vital Signs Date Time Temp Pulse Resp B/P (MAP) Pulse Ox O2 Delivery O2 Flow Rate FiO2 01/30/18 00:29 128 18 129/59 (82) 95 Room Air 01/29/18 22:55 97.9 130 22 122/56 (78) 95 Room Air 01/29/18 22:30 120 18 123/66 (85) 95 Room Air 01/29/18 21:16 99.3 133 18 124/80 (95) 92 Room Air 01/29/18 20:56 141 18 123/72 (89) 94 Room Air 01/29/18 20:51 135 18 94 Room Air 01/29/18 20:51 93 Room Air 01/29/18 20:12 101.5 139 18 124/58 (80 93 Physical Exam GENERAL: Well-nourished, well-developed patient. SKIN: Warm and dry. HEAD: Normocephalic. EYES: No scleral icterus. No injection or drainage. NECK: Supple, trachea midline. No JVD or lymphadenopathy. CARDIOVASCULAR: Regular rate and rhythm without murmurs, gallops, or rubs. RESPIRATORY: Breath sounds equal bilaterally. No accessory muscle use. GASTROINTESTINAL: Abdomen soft, non-tender, nondistended. Colostomy in place without signs of infection or inflammation MUSCULOSKELETAL: No cyanosis, or edema. BACK: Nontender without obvious deformity. NEURO EXAM: GCS: 15 Mental Status: The patient is alert and oriented to person, place, and time with normal speech. Cranial Nerves: Visual acuity intact bilaterally. Visual alvarado normal in all quadrants. Pupils are round, reactive to light. Extraocular movements are intact without ptosis. Hearing is normal bilaterally. Voice is normal. Tongue protrudes midline and moves symmetrically. Laboratory Laboratory Tests Test 01/29/18 20:38 01/29/18 21:18 01/29/18 23:40 White Blood Count 10.3 Red Blood Count 3.09 Hemoglobin 8.8 6.9 Hematocrit 26.6 Mean Corpuscular Volume 86.3 Mean Corpuscular Hemoglobin 28.6 Mean Corpuscular Hemoglobin Concent 33.2 Red Cell Distribution Width 17.3 Platelet Count 150 Mean Platelet Volume 8.9 Neutrophils (%) (Auto) 85.9 Lymphocytes (%) (Auto) 10.5 Monocytes (%) (Auto) 2.4 Eosinophils (%) (Auto) 0.4 Basophils (%) (Auto) 0.8 Neutrophils # (Auto) 8.8 Lymphocytes # (Auto) 1.1 Monocytes # (Auto) 0.2 Eosinophils # (Auto) 0.0 Basophils # (Auto) 0.1 CBC Comment AUTO DIFF Differential Total Cells Counted 100 Neutrophils % (Manual) 85 Band Neutrophils % 7 Lymphocytes % 7 Neutrophils # (Manual) 9.6 Myelocytes 1 Differential Comment FINAL DIFF MANUAL Platelet Estimate LOW Platelet Morphology Comment NORMAL Prothrombin Time 11.3 Prothromb Time International Ratio 1.1 Activated Partial Thromboplast Time 33.2 Blood Urea Nitrogen 22 Creatinine 1.46 Random Glucose 157 Total Protein 6.0 Albumin 2.3 Calcium Level 8.1 Magnesium Level 1.5 Alkaline Phosphatase 98 Aspartate Amino Transf (AST/SGOT) 19 Alanine Aminotransferase (ALT/SGPT) 9 Total Bilirubin 0.6 Sodium Level 136 Potassium Level 4.4 Chloride Level 101 Carbon Dioxide Level 26.3 Anion Gap 9 Estimat Glomerular Filtration Rate 47 Lactic Acid Level 2.2 1.7 Total Creatine Kinase 44 Troponin I LESS THAN 0.02 Lipase 77 Urine Color YELLOW Urine Turbidity CLEAR Urine pH 6.5 Urine Specific [place] 1.022 Urine Protein 30 Urine Glucose (UA) NEG Urine Ketones TRACE Urine Occult Blood TRACE Urine Nitrite NEG Urine Bilirubin NEG Urine Urobilinogen LESS THAN 2.0 Urine Leukocyte Esterase SMALL Urine RBC 1 Urine WBC 5 Urine Squamous Epithelial Cells 3 Urine Renal Epithelial Cells <1 Urine Mucus FEW Microscopic Urinalysis Comment CATH-CULT NOT IND Date/Time Source Procedure Growth Status 01/29/18 20:30 Blood Peripheral Aerobic Blood Culture Pending Received 01/29/18 20:30 Blood Peripheral Anaerobic Blood Culture Pending Received 01/29/18 20:39 Nasal Washing Influenza Types A,B Antigen (JOSE) - Final NEGATIVE FOR FLU A AND B ANTIGEN.... Complete Result Diagram: 01/29/18 2340 01/29/182037 Imaging Last 24 hours Impressions Chest X-Ray 01/29/182025 Signed Impressions: CONCLUSION: Pleural-parenchymal opacity in the right lung which may be related to previous surgery or may represent pleural effusion with underlying airspace disease. Status post right thoracotomy Clear left lung. Caprini VTE Risk Assessment Caprini VTE Risk Assessment: Mod/High Risk (score >= 2) VTE Pharm Contraindication: Hemorrhage Caprini Risk Assessment Model Point Value = 1 Point Value = 2 Point Value = 3 Point Value = 5 Age 41-60 Minor surgery BMI > 25 kg/m2 Swollen legs Varicose veins or History of unexplained or recurrent spontaneous Oral contraceptives or hormone replacement Sepsis (< 1 month) Serious lung disease, including pneumonia (< 1 month) Abnormal pulmonary function Acute myocardial infarction Congestive heart failure (< 1 month) History of inflammatory bowel disease Medical patient at bed rest Age 61-74 Arthroscopic surgery Major open surgery (> 45 min) Laparoscopic surgery (> 45 min) Malignancy Confined to bed (> 72 hours) Immobilizing plaster cast Central venous access Age >= 75 History of VTE Family history of VTE Factor V Leiden Prothrombin [id number] Lupus anticoagulant Anticardiolipin antibodies Elevated serum homocysteine Heparin-induced thrombocytopenia Other congenital or acquired thrombophilia Stroke (< 1 month) Elective arthroplasty Hip, pelvis, or leg fracture Acute spinal cord injury (< 1 month) Prophylaxis Regimen Total Risk Factor Score Risk Level Prophylaxis Regimen 0-1 Low Early ambulation 2 Moderate Order ONE of the following: *Sequential Compression Device (SCD) *Heparin 5000 units SQ BID 3-4 Higher Order ONE of the following medications: *Heparin 5000 units SQ TID *Enoxaparin/Lovenox 40 mg SQ daily (WT < 150 kg, CrCl > 30 mL/min) *Enoxaparin/Lovenox 30 mg SQ daily (WT < 150 kg, CrCl > 10-29 mL/min) *Enoxaparin/Lovenox 30 mg SQ BID (WT < 150 kg, CrCl > 30 mL/min) AND/OR *Sequential Compression Device (SCD) 5 or more Highest Order ONE of the following medications: *Heparin 5000 units SQ TID (Preferred with Epidurals) *Enoxaparin/Lovenox 40 mg SQ daily (WT < 150 kg, CrCl > 30 mL/min) *Enoxaparin/Lovenox 30 mg SQ daily (WT < 150 kg, CrCl > 10-29 mL/min) *Enoxaparin/Lovenox 30 mg SQ BID (WT < 150 kg, CrCl > 30 mL/min) AND *Sequential Compression Device (SCD) Assessment and Plan Assessment and Plan Sepsis -Unclear source -Broad-spectrum antibiotics -Urine culture, blood culture, sputum culture -De-escalate based sensitivity Hypertension -Due to above -Aggressive IV fluid resuscitation GI bleed -Protonix IV twice daily -Gastroenterology consultation COPD -DuoNeb scheduled and as needed -No indication for steroids at this time Lung cancer -Oncology consultation DVT GI prophylaxis -Damián's and SCDs -Severe anemia with positive occult blood in the emesis -Protonix IV twice daily Critical Care: The total critical care time was 35 minutes. Time to perform other separately billable procedures was not included in the critical care time. Alireza Tian MD January 30, 2018 12:59 am
[2018-01-30] MEDS: HYDROmorphone HCL PF 2 MG/ML VIAL IV PUSH PRN ×2 (01:48→07:41)
[2018-01-30] MEDS ORDERED: VANCOMYCIN 1 GM/200 ML PREMIX IV SCH (02:00)
[2018-01-30] MEDS: RESP: ALBUTEROL 2.5 MG/IPRATROPIUM 0.5 MG NEB (SCH) INH ×4 (04:36→20:39)
[2018-01-30] MEDS: PIPERACIL-TAZO 4.5 GM PREMIX 100 ML IV SCH ×3 (06:25→18:16)
--- NOTE | 2018-01-30 07:51 | EKG ---
Date Performed: 01/30/2018 Time Performed: 06:48:12 PTAGE: 72 years EKG: SINUS TACHYCARDIA WITH OCCASIONAL VENTRICULAR PREMATURE COMPLEXES ABNORMAL RHYTHM ECG PREVIOUS TRACING : 01/29/2018 20.12 No significant change from previous tracing noted. DOCTOR: Jaleel Garza Interpretating Date/Time 01/30/2018 07:49:27
--- NOTE | 2018-01-30 08:45 | RADRPT ---
EXAM DATE: 01/30/2018 8:41 AM EDT AGE/SEX: 72 years / Male INDICATIONS: Evaluate for respiratory failure. CLINICAL DATA: This is the patient's subsequent encounter. Patient reports that signs and symptoms h ave been present for 2 days and indicates a pain score of 0/10. MEDICAL/SURGICAL HISTORY: Carcinoma, lung. None. COMPARISON: [facility] [place] CHEST SINGLE AP, 01/29/2018. . FINDINGS: A single AP view of the chest demonstrates the moderate right pleural effusion. There is some interst itial prominence. Cardiomegaly. Nasogastric tube with tip below the inferior margin the imaged but li jerod in stomach. The cardiomediastinal contours are unremarkable. Osseous structures are intact. St ent overlies the right subclavian region. CONCLUSION: 1. Moderate right pleural effusion and right basilar consolidation. 2. Slight interstitial edema. Electronically signed by: Kaden Hurst MD 01/30/2018 8:44 AM EDT
[2018-01-30] MEDS: BUDESONIDE-FORMOTEROL 160/4.5 MCG INHALER INH SCH ×2 (09:14→21:00)
[2018-01-30] MEDS: VENLAFAXINE HCL XR 37.5 MG CAP PO SCH (09:14)
[2018-01-30] MEDS ORDERED: HYDROmorphone HCL PF 2 MG/ML VIAL IV PUSH PRN (09:15)
[2018-01-30] MEDS ORDERED: FUROSEMIDE 40 MG/4 ML VIAL IV PUSH ONE (09:15)
[2018-01-30] MEDS: SODIUM CHLORIDE 0.9% FLUSH 10 ML FLUSH IV FLUSH PRN (09:19)
[2018-01-30] MEDS: SODIUM CHLORIDE 0.9% FLUSH 10 ML FLUSH IV FLUSH SCH ×2 (09:19→20:58)
[2018-01-30] MEDS: DOCUSATE SODIUM 50 MG/SENNA 8.6 MG TAB PO SCH ×2 (09:19→21:00)
--- NOTE | 2018-01-30 09:38 | PD.CONS ---
HPI History of Present Illness This is a 72 year old M with GI history significant for Crohns S/P colectomy with colostomy who presented to the ER yesterday with complaints of weakness. Pt received Dilaudid prior to my exam and is very lethargic, falls asleep after one word making history difficult to obtain. Pt was found to be tachycardic, febrile, and anemic. There was reports of multiple episodes of emesis in the ER , with some BRB noted and Hemoccult testing was positive. Pt has lung cancer and is receiving chemotherapy every three weeks, last treatment was last Tuesday. Unsure of history of anemia or need for blood transfusions while on chemotherapy. He does reports was previously seeing a [facility] doctor at the [facility] but has not followed up with any GI doctor recently. He did not provide when his last colonoscopy or EGD was. Colostomy to LLQ with semi-formed brown stool. Per RN he has had no emesis, currently has NGT to LIWS with small amount of green drainage. (Ryanne Oro) PFSH Past Medical History Crohns Superior vena cava Syndrome Lung cancer COPD Past Surgical History IVC filter Colon resection- colostomy Penile implant Superior vena cava stent (Ryanne Oro) Coded Allergies: No Known Allergies (Unverified , 04/26/16) Social History Unable to obtain (Ryanne Oro) Review of Systems Gastrointestinal: COMPLAINS OF: Nausea, Vomiting, DENIES: Abdominal pain, Bloody stools (Ryanne Oro) GI Exam Vitals I&O Vital Signs Date Time Temp Pulse Resp B/P (MAP) Pulse Ox O2 Delivery O2 Flow Rate FiO2 01/30/18 08:42 95 Nasal Cannula 3.00 01/30/18 07:45 98.8 115 16 132/60 94 01/30/18 07:30 97.9 115 25 143/63 98 01/30/18 06:00 113 01/30/18 05:30 98.8 111 16 127/68 96 01/30/18 04:46 98.0 110 20 125/50 96 01/30/18 04:37 96 Nasal Cannula 3.00 01/30/18 04:00 113 01/30/18 04:00 97.2 89 22 134/62 (86) 98 01/30/18 03:00 16 01/30/18 02:00 110 01/30/18 01:40 97.9 126 18 129/61 96 01/30/18 01:08 01/30/18 01:05 97.9 124 22 127/59 (81) 96 01/30/18 00:29 128 18 129/59 (82) 95 Room Air 01/29/18 22:55 97.9 130 22 122/56 (78) 95 Room Air 01/29/18 22:30 120 18 123/66 (85) 95 Room Air 01/29/18 21:16 99.3 133 18 124/80 (95) 92 Room Air 01/29/18 20:56 141 18 123/72 (89) 94 Room Air 01/29/18 20:51 135 18 94 Room Air 01/29/18 20:51 93 Room Air 01/29/18 20:12 101.5 139 18 124/58 (80) 93 I/O 01/29/18 01/29/18 01/29/18 01/30/18 01/30/18 01/30/18 07:00 15:00 23:00 07:00 15:00 23:00 Intake Total 1350 ml 2477 ml 156.9 ml Output Total 600 ml Balance 1350 ml 1877 ml 156.9 ml Intake IV Total 1350 ml 1627 ml 126.9 ml Packed Cells 800 ml Blood Product IV Normal Saline Flush 50 ml 30 ml Output Urine Total 600 ml Gastric Drainage Total 0 ml Imaging Last Impressions Chest X-Ray 01/30/18 0000 Signed Impressions: CONCLUSION: 1. Moderate right pleural effusion and right basilar consolidation. 2. Slight interstitial edema. CT Angiography 01/29/18 0000 Signed Impressions: CONCLUSION: 1. There is no evidence of PE for technique. 2. Loculated right pleural effusion with pleural thickening highly suspicious for pleural-based metastatic disease. 3. Bilateral parenchymal infiltrates may represent pneumonia and on the right side may be partially due to compressed lung and/or postobstructive pneumonitis . Masslike area is seen in right upper lobe extending to the right hilum. Abdomen/Pelvis CT 01/29/18 0000 Signed Impressions: CONCLUSION: Chronic and postsurgical changes and otherwise unremarkable. Laboratory Test 01/29/18 20:38 01/29/18 21:18 01/29/18 23:40 01/30/18 01:05 White Blood Count 10.3 TH/MM3 Red Blood Count 3.09 MIL/MM3 Hemoglobin 8.8 GM/DL 6.9 GM/DL Hematocrit 26.6 % Mean Corpuscular Volume 86.3 FL Mean Corpuscular Hemoglobin 28.6 PG Mean Corpuscular Hemoglobin Concent 33.2 % Red Cell Distribution Width 17.3 % Platelet Count 150 TH/MM3 Mean Platelet Volume 8.9 FL Neutrophils (%) (Auto) 85.9 % Lymphocytes (%) (Auto) 10.5 % Monocytes (%) (Auto) 2.4 % Eosinophils (%) (Auto) 0.4 % Basophils (%) (Auto) 0.8 % Neutrophils # (Auto) 8.8 TH/MM3 Lymphocytes # (Auto) 1.1 TH/MM3 Monocytes # (Auto) 0.2 TH/MM3 Eosinophils # (Auto) 0.0 TH/MM3 Basophils # (Auto) 0.1 TH/MM3 CBC Comment AUTO DIFF Differential Total Cells Counted 100 Neutrophils % (Manual) 85 % Band Neutrophils % 7 % Lymphocytes % 7 % Neutrophils # (Manual) 9.6 TH/MM3 Myelocytes 1 % Differential Comment FINAL DIFF MANUAL Platelet Estimate LOW Platelet Morphology Comment NORMAL Prothrombin Time 11.3 SEC Prothromb Time International Ratio 1.1 RATIO Activated Partial Thromboplast Time 33.2 SEC Blood Urea Nitrogen 22 MG/DL Creatinine 1.46 MG/DL Random Glucose 157 MG/DL Total Protein 6.0 GM/DL Albumin 2.3 GM/DL Calcium Level 8.1 MG/DL Magnesium Level 1.5 MG/DL Alkaline Phosphatase 98 U/L Aspartate Amino Transf (AST/SGOT) 19 U/L Alanine Aminotransferase (ALT/SGPT) 9 U/L Total Bilirubin 0.6 MG/DL Sodium Level 136 MEQ/L Potassium Level 4.4 MEQ/L Chloride Level 101 MEQ/L Carbon Dioxide Level 26.3 MEQ/L Anion Gap 9 MEQ/L Estimat Glomerular Filtration Rate 47 ML/MIN Lactic Acid Level 2.2 mmol/L 1.7 mmol/L Total Creatine Kinase 44 U/L Troponin I LESS THAN 0.02 NG/ML Lipase 77 U/L Urine Color YELLOW Urine Turbidity CLEAR Urine pH 6.5 Urine Specific [place] 1.022 Urine Protein 30 mg/dL Urine Glucose (UA) NEG mg/dL Urine Ketones TRACE mg/dL Urine Occult Blood TRACE Urine Nitrite NEG Urine Bilirubin NEG Urine Urobilinogen LESS THAN 2.0 MG/DL Urine Leukocyte Esterase SMALL Urine RBC 1 /hpf Urine WBC 5 /hpf Urine Squamous Epithelial Cells 3 /hpf Urine Renal Epithelial Cells <1 /hpf Urine Mucus FEW /lpf Microscopic Urinalysis Comment CATH-CULT NOT IND Nasal Screen MRSA (PCR) MRSA NOT DETECTED Date/Time Source Procedure Growth Status 01/29/18 20:30 Blood Peripheral Aerobic Blood Culture Pending Received 01/29/18 20:30 Blood Peripheral Anaerobic Blood Culture Pending Received 01/29/18 20:39 Nasal Washing Influenza Types A,B Antigen (JOSE) - Final NEGATIVE FOR FLU A AND B ANTIGEN.... Complete 01/29/18 21:18 Urine Random Urine Urine Culture Pending Received Physical Examination HEENT: Normocephalic; atraumatic CHEST: Even/unlabored CARDIAC: Sinus tachycardia on telemetry ABDOMEN: Soft, nondistended, nontender; bowel sounds active, colostomy to LLQ with semi-formed brown stool EXTREMITIES: No clubbing, cyanosis, or edema. SKIN: Normal; no rash; no jaundice. PATIENT SERVICES ASSISTANT: Lethargic (yRanne Oro) Assessment and Plan Plan Assessment: Pt very lethargic S/P Dilaudid and is unable to provide much of a history, gives one words answers and then falls asleep - Emesis, Hemoccult positive, anemia-normocytic Reports of emesis in the ER with some BRB. Per [employer] pt with no continued emesis since being transferred to ICU, has NGT to LIWS with small amount of green drainage. H/H 8.8/26.6 on admission- recheck hgb dropped to 6.9 last night- 3 U PRBCs have been ordered and are currently transfusing Unsure of last EGD or colonoscopy - Crohns disease S/P colectomy with colostomy, stool is semi-formed and brown- no reports of bleeding through stoma. No Crohns medications listed on home medication list CT abdomen and pelvis W IV contrast (01/29) --> Chronic and postsurgical changes and otherwise unremarkable - Lung cancer- receives chemotherapy ever 3 weeks, last treatment was last Tuesday Plan: EGD and colonoscopy tomorrow Obtain consent Half-lytely prep NPO after MN Protonix gtt NGT to LIWS Serial H/H Transfuse per CCM Further recommendations based on clinical course and results of above Pt has been seen and examined by myself and Dr. Schaefer and this note is written on his behalf (Ryanne Oro) Physician Comments Seen and examined with BRIDGET, no bleeding. NG to LIS. Reports recent colonoscopy through the [facility] and does not wish to do colonoscopy at this time. Will obtain records from the [facility] next week. EGD tomorrow. Monitor labs. Discussed with the nurse, thank you (Ileana Schaefer MD) Ryanne Oro January 30, 2018 09:38 Ileana Schaefer MD January 30, 2018 13:52
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
[2018-01-30] MEDS: PANTOPRAZOLE SODIUM 40 MG VIAL IV PUSH SCH (11:59)
[2018-01-30] MEDS: PROPRANOLOL HCL 20 MG TAB PO SCH ×2 (12:59→21:46)
[2018-01-30 14:08] LABS: AUTOMATED NEUTROPHIL # 5.8 TH/MM3 (1.8-7.7); BASOPHIL % 0.5 % (0.0-2.0); EOSINOPHIL # 0.1 TH/MM3 (0-0.4); EOSINOPHIL % 0.8 % (0.0-4.0); HEMATOCRIT 38.7 % (39.0-51.0); LYMPH % 9.6 % (9.0-44.0); LYMPHOCYTE # 0.7 TH/MM3 (1.0-4.8); MEAN CELL VOLUME 85.3 FL (80.0-100.0); MEAN CORPUSCULAR HEMOGLOBIN 28.7 PG (27.0-34.0); MEAN CORPUSCULAR HGB CONC 33.7 % (32.0-36.0); MEAN PLATELET VOLUME 8.2 FL (7.0-11.0); MONO % 2.9 % (0.0-8.0); MONOCYTE # 0.2 TH/MM3 (0-0.9); NEUT % 86.2 % (16.0-70.0); PLATELET COUNT 169 TH/MM3 (150-450); RED BLOOD COUNT 4.53 MIL/MM3 (4.50-5.90); RED CELL DISTRIBUTION WIDTH 16.5 % (11.6-17.2); WHITE BLOOD COUNT 6.8 TH/MM3 (4.0-11.0)
[2018-01-30 14:16] LABS: INTERNATIONAL NORMALIZED RATIO 1.1 RATIO
[2018-01-30 14:32] LABS: ALBUMIN 2.3 GM/DL (3.4-5.0); AST (GOT) 14 U/L (15-37); BICARBONATE 30.1 MEQ/L (21.0-32.0); BLOOD UREA NITROGEN 18 MG/DL (7-18); CALCIUM 8.4 MG/DL (8.5-10.1); CHLORIDE 100 MEQ/L (98-107); CREATININE 1.49 MG/DL (0.60-1.30); GLOMERULAR FILTRATION RATE 46 ML/MIN (>89); GLUCOSE,RANDOM 134 MG/DL (74-106); MAGNESIUM 1.6 MG/DL (1.5-2.5); SODIUM (NA) 138 MEQ/L (136-145)
[2018-01-30 14:33] LABS: ALT (GPT) 9 U/L (12-78); PHOSPHORUS 3.6 MG/DL (2.5-4.9)
[2018-01-30 14:34] LABS: % SATURATION IRON PROFILE 21.9 % (20-50); IRON (FE) 39 MCG/DL (65-175); TOTAL IRON BINDING CAPACITY 178 MCG/DL (250-450)
[2018-01-30 14:37] LABS: ALKALINE PHOSPHATASE 98 U/L (45-117); FERRITIN 1137 NG/ML (26-388); TOTAL BILIRUBIN ADULT 1.7 MG/DL (0.2-1.0); TOTAL PROTEIN 6.4 GM/DL (6.4-8.2); TROPONIN I LESS THAN 0.02 NG/ML (0.02-0.05)
[2018-01-30] MEDS: VANCOMYCIN 1,500 MG/NS 500 ML IV SCH ×2 (15:01)
[2018-01-30 15:40] LABS: BANDS 4 % (0-6); BASOPHILS 1 % (0-2); LYMPHOCYTES 8 % (9-44); METAMYELOCYTES 1 % (0-1); MONOCYTES 7 % (0-8); NEUTROPHIL # MANUAL DIFF 5.6 TH/MM3 (1.8-7.7); POLYS (SEG NEUTROPHILS) 78 % (16-70)
[2018-01-30] MEDS ORDERED: PEG (High)/E-LYTE SOLN 4000 ML BTL PO ONE (16:00)
[2018-01-30 17:24] LABS: HEMATOCRIT 37.1 % (39.0-51.0); HEMOGLOBIN 12.6 GM/DL (13.0-17.0)
[2018-01-30] MEDS ORDERED: MORPHINE SULFATE 4 MG/ML INJ IV PRN (18:00)
[2018-01-30] MEDS ORDERED: MORPHINE SULFATE 2 MG/ML SYRINGE IV PUSH STA (20:47)
[2018-01-30] MEDS ORDERED: MORPHINE SULFATE 4 MG/ML INJ IV ONE (21:00)
[2018-01-31] VITALS (39 sets, daily range): BP systolic 99–127; BP diastolic 50–78; PULSE 88–109; RESP 20–25; TEMP 98–98.3; O2SAT 81–99
[2018-01-31 00:10] LABS: HEMATOCRIT 36.2 % (39.0-51.0); HEMOGLOBIN 12.3 GM/DL (13.0-17.0)
[2018-01-31] MEDS: PANTOPRAZOLE SODIUM 40 MG VIAL IV PUSH SCH ×2 (00:30→12:30)
[2018-01-31] MEDS: PIPERACIL-TAZO 4.5 GM PREMIX 100 ML IV SCH ×4 (00:55→18:45)
[2018-01-31] MEDS: MORPHINE SULFATE 4 MG/ML INJ IV PRN ×3 (01:05→22:58)
[2018-01-31] MEDS: TEMAZEPAM 15 MG CAP PO PRN (01:06)
[2018-01-31] MEDS: PANTOPRAZOLE INJ 80 MG in SODIUM CHLORIDE 0.9% INJ 100 ML IV SCH ×2 (02:59→15:00)
[2018-01-31 03:57] LABS: AUTOMATED NEUTROPHIL # 3.9 TH/MM3 (1.8-7.7); BASOPHIL # 0.1 TH/MM3 (0-0.2); BASOPHIL % 1.1 % (0.0-2.0); EOSINOPHIL # 0.1 TH/MM3 (0-0.4); EOSINOPHIL % 2.1 % (0.0-4.0); HEMATOCRIT 35.1 % (39.0-51.0); HEMOGLOBIN 11.9 GM/DL (13.0-17.0); LYMPH % 17.3 % (9.0-44.0); LYMPHOCYTE # 0.9 TH/MM3 (1.0-4.8); MEAN CELL VOLUME 86.3 FL (80.0-100.0); MEAN CORPUSCULAR HEMOGLOBIN 29.2 PG (27.0-34.0); MEAN CORPUSCULAR HGB CONC 33.9 % (32.0-36.0); MEAN PLATELET VOLUME 8.5 FL (7.0-11.0); MONO % 6.7 % (0.0-8.0); MONOCYTE # 0.4 TH/MM3 (0-0.9); NEUT % 72.8 % (16.0-70.0); PLATELET COUNT 146 TH/MM3 (150-450); RED BLOOD COUNT 4.07 MIL/MM3 (4.50-5.90); RED CELL DISTRIBUTION WIDTH 16.4 % (11.6-17.2); WHITE BLOOD COUNT 5.4 TH/MM3 (4.0-11.0)
[2018-01-31] MEDS: RESP: ALBUTEROL 2.5 MG/IPRATROPIUM 0.5 MG NEB (SCH) INH ×4 (04:00→21:19)
[2018-01-31 04:12] LABS: INTERNATIONAL NORMALIZED RATIO 1.1 RATIO; PROTHROMBIN TIME - PATIENT 11.4 SEC (9.8-11.6)
[2018-01-31 04:19] LABS: ALBUMIN 1.9 GM/DL (3.4-5.0); AST (GOT) 12 U/L (15-37); BICARBONATE 28.5 MEQ/L (21.0-32.0); BLOOD UREA NITROGEN 19 MG/DL (7-18); CHLORIDE 99 MEQ/L (98-107); CREATININE 1.75 MG/DL (0.60-1.30); GLOMERULAR FILTRATION RATE 38 ML/MIN (>89); GLUCOSE,RANDOM 143 MG/DL (74-106); MAGNESIUM 1.6 MG/DL (1.5-2.5); SODIUM (NA) 138 MEQ/L (136-145)
[2018-01-31 04:23] LABS: ALKALINE PHOSPHATASE 84 U/L (45-117); ALT (GPT) 7 U/L (12-78); PHOSPHORUS 4.3 MG/DL (2.5-4.9); TOTAL BILIRUBIN ADULT 1.1 MG/DL (0.2-1.0); TOTAL PROTEIN 5.8 GM/DL (6.4-8.2)
[2018-01-31 05:06] LABS: BANDS 14 % (0-6); LYMPHOCYTES 16 % (9-44); MONOCYTES 5 % (0-8); NEUTROPHIL # MANUAL DIFF 4.3 TH/MM3 (1.8-7.7); POLYS (SEG NEUTROPHILS) 65 % (16-70)
[2018-01-31] MEDS: VANCOMYCIN 1,500 MG/NS 500 ML IV SCH ×2 (08:05)
--- NOTE | 2018-01-31 08:19 | HHI.CCPN ---
Subjective Remarks/Hospital Course 71-year-old male presents for generalized weakness and feeling anxious. Patient was identified in route to the hospital to be in a sinus tachycardia with a rate of 140 bpm was administered normal saline 400 cc bolus. In the emergency department he was found to be febrile with a temperature of 101F. The patient states he has not felt well since this morning. He has colostomy secondary to previous colectomy due to Crohn's disease. Patient reportedly was hospitalized in the [place] recently for GI bleed underwent scoping required transfusion but has not had any blood in his stool subsequently. No urinary symptoms no flank pain no skin rash redness warmth joint pain or swelling. Patient was unaware that he had a fever. Patient does have a lung cancer and is currently undergoing chemotherapy every 3 weeks on Tuesday and last chemotherapy was Tuesday of this week. Patient has been on warfarin therapy in the past but denies taking any warfarin at this time. He denies: headache visual disturbance sinus pressure drainage sore throat earache neck pain chest pain shortness of breath productive cough hemoptysis abdominal pain vomiting diarrhea hematemesis coffee-ground emesis melena hematochezia. In the emergency department he vomited large amounts fluid that is positive for Hemoccult. The fluid boluses resuscitation his last H&H was below 7 . He is getting transfused with PRBCs. Subjective: 01/31: No acute events overnight. Yesterday post 3 units packed red blood cells chest x-ray obtained noted pulmonary edema, Lasix 40 mg IV given with good diuresis. No increase in oxygen requirements. Bandemia persists, patient continues on vancomycin and Zosyn. he continues on Protonix infusion, no further hematemesis, or shari blood noted in ileostomy drainage. EGD pending today. Objective Vital Signs Date Time Temp Pulse Resp B/P (MAP) Pulse Ox O2 Delivery O2 Flow Rate FiO2 01/31/18 06:00 91 01/31/18 05:15 23 81 01/31/18 05:01 127/58 (81) 01/31/18 04:00 98.2 01/30/18 20:39 Nasal Cannula 2.00 Intake and Output 01/31/18 01/31/18 02/01/18 08:00 16:00 00:00 Output Total 500 ml Balance -500 ml Result Diagram: 01/31/18 0320 01/31/18 0330 Other Results Microbiology Date/Time Source Procedure Growth Status 01/29/18 20:39 Nasal Washing Influenza Types A,B Antigen (JOSE) - Final NEGATIVE FOR FLU A AND B ANTIGEN.... Complete Imaging Last Impressions Chest X-Ray 01/30/18 0000 Signed Impressions: CONCLUSION: 1. Moderate right pleural effusion and right basilar consolidation. 2. Slight interstitial edema. CT Angiography 01/29/18 0000 Signed Impressions: CONCLUSION: 1. There is no evidence of PE for technique. 2. Loculated right pleural effusion with pleural thickening highly suspicious for pleural-based metastatic disease. 3. Bilateral parenchymal infiltrates may represent pneumonia and on the right side may be partially due to compressed lung and/or postobstructive pneumonitis . Masslike area is seen in right upper lobe extending to the right hilum. Abdomen/Pelvis CT 01/29/18 0000 Signed Impressions: CONCLUSION: Chronic and postsurgical changes and otherwise unremarkable. Last 24 hours Impressions Chest X-Ray 01/29/182025 Signed Impressions: CONCLUSION: Pleural-parenchymal opacity in the right lung which may be related to previous surgery or may represent pleural effusion with underlying airspace disease. Status post right thoracotomy Clear left lung. Objective Remarks GENERAL: This is a well-nourished, well-developed male patient SKIN: Warm and dry. HEAD: Normocephalic. EYES: No scleral icterus. No injection or drainage. Pupils 3 mm and brisk NECK: Supple, trachea midline. No JVD or lymphadenopathy. CARDIOVASCULAR: Regular rate and rhythm without murmurs, gallops, or rubs. RESPIRATORY: Breath sounds equal bilaterally. No accessory muscle use. Coarse rhonchi right upper lobe. Dressing right chest CDI GASTROINTESTINAL: Abdomen soft, non-tender, nondistended. Colostomy in place without signs of infection or inflammation MUSCULOSKELETAL: No cyanosis, or edema. BACK: Nontender without obvious deformity. NEURO EXAM: GCS: 15 Mental Status: The patient is alert and oriented to person, place, and time with normal speech. Cranial Nerves: Visual acuity intact bilaterally. Visual alvarado normal in all quadrants. Pupils are round, reactive to light. Extraocular movements are intact without ptosis. Hearing is normal bilaterally. Voice is normal. Tongue protrudes midline and moves symmetrically. A/P Assessment and Plan Sepsis Bandemia -Unclear source -Broad-spectrum antibiotics-Zosyn and vancomycin 01/29 urine culture, blood culture, sputum culture- NGTD -De-escalate based sensitivity Hypertension -Due to above -IVF decreased to 100cc/hr GI bleed -Protonix IV twice daily -Gastroenterology consultation -EGD tentatively scheduled for today COPD -DuoNeb scheduled and as needed -No indication for steroids at this time Lung cancer -Oncology following -Adenocarcinoma of the right lung with recurrent right pleural effusions DVT GI prophylaxis -Damián's and SCDs -Protonix IV infusion Dispo: Level [address] [facility] [facility] Physician Rosalina Pelletier MD January 31, 2018 08:19
[2018-01-31] MEDS: SODIUM CHLOR 0.9% 1000 ML INJ 1,000 ML IV SCH ×2 (08:30→18:45)
[2018-01-31] MEDS: SODIUM CHLORIDE 0.9% FLUSH 10 ML FLUSH IV FLUSH SCH ×2 (09:00→19:56)
[2018-01-31] MEDS: BUDESONIDE-FORMOTEROL 160/4.5 MCG INHALER INH SCH ×2 (09:00→19:56)
[2018-01-31] MEDS: VENLAFAXINE HCL XR 37.5 MG CAP PO SCH (09:00)
[2018-01-31] MEDS: DOCUSATE SODIUM 50 MG/SENNA 8.6 MG TAB PO SCH ×2 (09:00→19:56)
[2018-01-31] MEDS: PROPRANOLOL HCL 20 MG TAB PO SCH ×2 (09:00→19:56)
--- NOTE | 2018-01-31 10:28 | RADRPT ---
EXAM DATE: 01/31/2018 10:22 AM EDT AGE/SEX: 72 years / Male INDICATIONS: Short of breath. CLINICAL DATA: This is the patient's initial encounter. Patient reports that signs and symptoms have been present for 4 - 6 days and indicates a pain score of 4/10. MEDICAL/SURGICAL HISTORY: Carcinoma, lung. Diabetes mellitus type II. . Right thoracotomy,colo n resection,inguinat hernia repair. COMPARISON: [facility], CHEST SINGLE AP, 01/30/2018. . FINDINGS: There is a stable NGT in place. Persistent moderate size right pleural effusion with associated right lower lung zone airspace disease. Right perihilar mass similar to prior exam. Patchy airspace diseas e throughout the left lung. Cardiac base on contours are stable. Remainder of the exam is unchanged. CONCLUSION: 1. No significant interval change. 2. Loculated moderate right pleural effusion with associated lower lobe airspace disease. 3. Patchy diffuse airspace disease throughout the left lung with upper lobe predominance. 4. Right perihilar mass. Electronically signed by: Cristhian Aldana MD 01/31/2018 10:27 AM EDT
[2018-01-31 10:49] LABS: HEMATOCRIT 34.6 % (39.0-51.0); HEMOGLOBIN 11.7 GM/DL (13.0-17.0)
--- NOTE | 2018-01-31 11:52 | GIPROC ---
[facility] [address] [facility]. [facility], [address] EGD PROCEDURE REPORT EXAM DATE: 01/31/2018 PATIENT NAME: Jean Paul Urias MR #: [id number] BIRTHDATE: 1945 ATTENDING: Ileana Schaefer MD ORDER #: [id number] LITHOGRAPH OPERATOR: Alfonso Aguilera and Alexandra Arechiga STATUS: inpatient INDICATIONS: The patient is a 72 yr old male here for an EGD due to acute post hemorrhagic anemia PROCEDURE PERFORMED: EGD w/ biopsy MEDICATIONS: None and Per Anesthesia. TOPICAL ANESTHETIC: CONSENT: The patient understands the risks and benefits of the procedure and understands that these risks include, but are not limited to: sedation, allergic reaction, infection, perforation and/or bleeding. Alternative means of evaluation and treatment include, among others: physical exam, x-rays, and/or surgical intervention. The patient elects to proceed with this endoscopic procedure. medical equipment was checked for proper function. Hand hygiene and appropriate measures for infection prevention was taken. After the risks, benefits and alternatives of the procedure were thoroughly explained, Informed consent was verified, confirmed and timeout was successfully executed by the treatment team. The patient was anesthetized with topical anesthesia and the Pentax EG-[id number] endoscope was introduced through the mouth and advanced to the second portion of the duodenum. Retroflexed views revealed no abnormalities The gastroscope was then slowly withdrawn and removed. ESOPHAGUS: There was LA Class D esophagitis noted. A biopsy was performed using cold forceps. Sample sent for histology. STOMACH: There was erythematous severe and erosive gastritis with heme present in the gastric body and gastric antrum. A biopsy was performed using cold forceps. Sample sent for histology. DUODENUM: The duodenal mucosa appeared normal in the bulb and second portion of the duodenum. ADVERSE EVENTS: There were no complications. IMPRESSIONS: 1. There was LA Class D esophagitis noted; biopsy was performed 2. There was erythematous gastritis in the gastric body and gastric antrum; biopsy was performed 3. Normal duodenal mucosa in the bulb and second portion of the duodenum 4. Retroflexed views revealed no abnormalities RECOMMENDATIONS: 1. Await biopsy results. Biopsy results will not be ready for 7-10 days. If you don't hear from us in two weeks, call our office for biopsy results. 2. Anti-reflux regimen 3. Continue PPI 4. Avoid NSAIDS PATIENT CONDITION: stable DISPOSITION: Inpatient REPEAT EXAM: Return 1 month EGD Ileana Schaefer MD eSigned: Ileana Schaefer MD 01/31/2018 11:52 AM cc: PATIENT NAME: BridgettJean Paul MR#: [id number]
[2018-01-31] MEDS ORDERED: PHENYLEPH/NS 1000 MCG/10 ML SYR IV ONE (12:00)
[2018-01-31] MEDS ORDERED: SUCCINYLCHOLINE CHLORIDE 100 MG/5 ML SYRINGE IV PUSH ONE (12:00)
[2018-01-31] MEDS ORDERED: PROPOFOL 200 MG/20 ML AMP IV ONE (12:00)
[2018-01-31] MEDS ORDERED: DO NOT ADM ANY ANTICOAGULANT DRUGS PRN (13:45)
[2018-01-31 16:22] LABS: HEMATOCRIT 36.3 % (39.0-51.0); HEMOGLOBIN 12.1 GM/DL (13.0-17.0)
[2018-02-01] VITALS (21 sets, daily range): BP systolic 106–133; BP diastolic 56–71; PULSE 80–100; RESP 16–21; TEMP 98–98.7; O2SAT 92–97
[2018-02-01] MEDS: PIPERACIL-TAZO 4.5 GM PREMIX 100 ML IV SCH ×4 (00:11→18:18)
[2018-02-01] MEDS: PANTOPRAZOLE SODIUM 40 MG VIAL IV PUSH SCH ×2 (00:11→12:30)
[2018-02-01] MEDS: PANTOPRAZOLE INJ 80 MG in SODIUM CHLORIDE 0.9% INJ 100 ML IV SCH ×2 (00:36→11:00)
[2018-02-01] MEDS: MORPHINE SULFATE 4 MG/ML INJ IV PRN ×4 (03:17→22:27)
[2018-02-01] MEDS: CHLORHEXIDINE GLUCONATE 2 % 1 PACK (2 CLOTHS) TOP SCH (03:19)
[2018-02-01] MEDS: RESP: ALBUTEROL 2.5 MG/IPRATROPIUM 0.5 MG NEB (SCH) INH ×4 (04:00→20:48)
[2018-02-01] MEDS: SODIUM CHLOR 0.9% 1000 ML INJ 1,000 ML IV SCH ×2 (05:12→19:30)
[2018-02-01 05:28] LABS: AUTOMATED NEUTROPHIL # 5.9 TH/MM3 (1.8-7.7); BASOPHIL # 0.1 TH/MM3 (0-0.2); BASOPHIL % 0.8 % (0.0-2.0); EOSINOPHIL # 0.1 TH/MM3 (0-0.4); EOSINOPHIL % 1.2 % (0.0-4.0); HEMOGLOBIN 10.7 GM/DL (13.0-17.0); LYMPH % 14.8 % (9.0-44.0); LYMPHOCYTE # 1.1 TH/MM3 (1.0-4.8); MEAN CELL VOLUME 85.6 FL (80.0-100.0); MEAN CORPUSCULAR HEMOGLOBIN 28.7 PG (27.0-34.0); MEAN CORPUSCULAR HGB CONC 33.6 % (32.0-36.0); MEAN PLATELET VOLUME 8.2 FL (7.0-11.0); MONO % 7.2 % (0.0-8.0); MONOCYTE # 0.6 TH/MM3 (0-0.9); PLATELET COUNT 156 TH/MM3 (150-450); RED BLOOD COUNT 3.74 MIL/MM3 (4.50-5.90); RED CELL DISTRIBUTION WIDTH 16.4 % (11.6-17.2); WHITE BLOOD COUNT 7.7 TH/MM3 (4.0-11.0)
[2018-02-01 05:51] LABS: BICARBONATE 29.2 MEQ/L (21.0-32.0); CREATININE 1.6 MG/DL (0.60-1.30); MAGNESIUM 1.7 MG/DL (1.5-2.5)
[2018-02-01 05:56] LABS: PHOSPHORUS 3.2 MG/DL (2.5-4.9)
--- NOTE | 2018-02-01 07:45 | PD.ONC.PN ---
Subjective Subjective Remarks Patient seen and examined, vital signs, labs and medications reviewed. Events over the past 24 hours were reviewed as well. Subjectively; patient denies acute complaints, he tells me his breathing is comfortable and that he is not in pain. He denies overt bleeding. He tells me this is his second hospitalization of the past 10 days for anemia, initially prior to his first hospitalization he reports noticing black tarry stools via his ileostomy. On he underwent EGD, he was noted to have esophagitis but no Stigmata of recent bleeding. Biopsies were obtained of the upper GI tract including the distal esophagus and stomach, pathology is pending at this time. Objective Data Date Time Temp Pulse Resp B/P (MAP) Pulse Ox O2 Delivery O2 Flow Rate FiO2 02/01/18 06:00 90 02/01/18 04:00 86 02/01/18 04:00 98.0 86 16 106/58 (74) 94 02/01/18 03:32 17 02/01/18 02:00 91 02/01/18 00:00 90 02/01/18 00:00 98.1 92 17 106/56 (73) 95 01/31/18 22:00 93 01/31/18 21:19 96 Nasal Cannula 6.00 01/31/18 20:00 98.2 102 20 121/58 (79) 95 01/31/18 20:00 102 01/31/18 18:00 109 01/31/18 17:00 107 01/31/18 16:00 98.0 103 23 116/57 (76) 89 01/31/18 16:00 103 01/31/18 15:48 98 Nasal Cannula 2.00 01/31/18 15:00 101 01/31/18 14:00 101 01/31/18 13:00 100 01/31/18 12:25 97.6 93 20 117/59 (78) 96 Nasal Cannula 2 01/31/18 12:15 95 20 106/56 (73) 96 Nasal Cannula 2 01/31/18 12:00 97.6 90 20 99/55 (70) 92 Nasal Cannula 2 01/31/18 10:00 93 01/31/18 09:00 94 01/31/18 08:29 98 Nasal Cannula 5.00 01/31/18 08:00 93 01/31/18 08:00 98.3 93 20 110/55 (73) 98 02/01/18 02/01/18 02/01/18 07:00 15:00 23:00 Intake Total 1100 ml Output Total 400 ml Balance 700 ml Result Diagram: 02/01/18 0336 02/01/18 0336 Laboratory Results Laboratory Tests Test 01/31/18 09:55 01/31/18 15:59 02/01/18 03:36 Hemoglobin 11.7 GM/DL 12.1 GM/DL 10.7 GM/DL Hematocrit 34.6 % 36.3 % 32.0 % White Blood Count 7.7 TH/MM3 Red Blood Count 3.74 MIL/MM3 Mean Corpuscular Volume 85.6 FL Mean Corpuscular Hemoglobin 28.7 PG Mean Corpuscular Hemoglobin Concent 33.6 % Red Cell Distribution Width 16.4 % Platelet Count 156 TH/MM3 Mean Platelet Volume 8.2 FL Neutrophils (%) (Auto) 76.0 % Lymphocytes (%) (Auto) 14.8 % Monocytes (%) (Auto) 7.2 % Eosinophils (%) (Auto) 1.2 % Basophils (%) (Auto) 0.8 % Neutrophils # (Auto) 5.9 TH/MM3 Lymphocytes # (Auto) 1.1 TH/MM3 Monocytes # (Auto) 0.6 TH/MM3 Eosinophils # (Auto) 0.1 TH/MM3 Basophils # (Auto) 0.1 TH/MM3 CBC Comment AUTO DIFF Blood Urea Nitrogen 19 MG/DL Creatinine 1.60 MG/DL Random Glucose 116 MG/DL Calcium Level 8.0 MG/DL Phosphorus Level 3.2 MG/DL Magnesium Level 1.7 MG/DL Sodium Level 137 MEQ/L Potassium Level 3.6 MEQ/L Chloride Level 100 MEQ/L Carbon Dioxide Level 29.2 MEQ/L Anion Gap 8 MEQ/L Estimat Glomerular Filtration Rate 43 ML/MIN Culture Results Microbiology Date/Time Source Procedure Growth Status 01/29/18 20:30 Blood Peripheral Aerobic Blood Culture - Preliminary NO GROWTH IN 2 DAYS Resulted 01/29/18 20:30 Blood Peripheral Anaerobic Blood Culture - Preliminary NO GROWTH IN 2 DAYS Resulted 01/29/18 20:30 Blood Peripheral Aerobic Blood Culture - Preliminary Staphylococcus Epidermidis Resulted 01/29/18 20:30 Blood Peripheral Anaerobic Blood Culture - Preliminary NO GROWTH IN 2 DAYS Resulted 01/29/18 20:39 Nasal Washing Influenza Types A,B Antigen (JOSE) - Final NEGATIVE FOR FLU A AND B ANTIGEN.... Complete 01/29/18 21:18 Urine Random Urine Urine Culture - Final <10,000 CFU/ML GRAM POSITIVE JOSE Complete Administered Medications Medications (Trade) Dose Ordered Sig/Felicia Route PRN Reason Start Time Stop Time Status Last Admin Dose Admin Pantoprazole Sodium 80 mg/ Sodium Chloride 100 ml @ 10 mls/hr Q10H IV 01/29/18 22:44 02/01/18 00:36 Budesonide/ Formoterol Fumarate (Symbicort 160-4.5 Mcg Inh) 2 puff Q12HR INH 01/30/18 09:00 01/31/18 19:56 Venlafaxine HCl (Effexor Xr) 37.5 mg DAILY PO 01/30/18 09:00 01/30/18 09:14 Sodium Chloride (NS Flush) 2 ml UNSCH PRN IV FLUSH FLUSH AFTER USING IV ACCESS 01/30/18 00:30 01/30/18 09:19 Sodium Chloride (NS Flush) 2 ml BID IV FLUSH 01/30/18 09:00 01/31/18 19:56 Temazepam (Restoril) 15 mg HS PRN PO INSOMNIA 01/30/18 00:30 01/31/18 01:06 Albuterol/ Ipratropium (Duoneb Neb) 1 ampule Q6HR NEB INH 01/30/18 04:00 01/31/18 15:47 Chlorhexidine Gluconate (Chlorhexidine 2% Cloth) 3 pack Taper DAILY@04 TOP 01/30/18 04:00 01/26/19 03:59 02/01/18 03:19 Senna/Docusate Sodium (Susan-Colace) 1 tab BID PO 01/30/18 09:00 01/31/18 19:56 Piperacillin Sod/ Tazobactam Sod 100 ml @ 200 mls/hr Q6H IV 01/30/18 00:30 02/01/18 05:51 Propranolol HCl (Inderal) 20 mg Q12HR PO 01/30/18 13:00 01/31/18 19:56 Morphine Sulfate (Morphine Inj) 2 mg Q4H PRN IV PAIN SCALE 8-10 01/30/18 21:00 02/01/18 03:17 Sodium Chloride 1,000 ml @ 100 mls/hr Q10H IV 01/31/18 08:30 02/01/18 05:12 Objective Remarks GENERAL: Elderly male, laying in bed, he is awake and alert, responsive appears to be no acute distress. Mildly pale. SKIN: Erythematous skin lesions over the chest, arms and in the inguinal area. These appear to be consistent with folliculitis. HEAD: Atraumatic. Normocephalic. No temporal or scalp tenderness. Conjunctivae are mildly pale EYES: Pupils equal round and reactive. Extraocular motions intact. No scleral icterus. No injection or drainage. Sclerae anicteric. ENT: Nose without bleeding, purulent drainage or septal hematoma. Throat without erythema, tonsillar hypertrophy or exudate. Uvula midline. Airway patent. NECK: Trachea midline. No JVD or lymphadenopathy. Supple, nontender, no meningeal signs. CARDIOVASCULAR: Regular rate and rhythm without murmurs, gallops, or rubs. RESPIRATORY: Coarse conducted breath sounds over essentially all zones, decreased bibasilar breath sounds more on the right as compared to left. He does have a pleural drain in place on the right side. GASTROINTESTINAL: Ileostomy bag in place, back containing gas and liquid stools. Abdomen soft, non-tender, nondistended. No hepato-splenomegaly, or palpable masses. No guarding. MUSCULOSKELETAL: Extremities without clubbing, cyanosis, or edema. No joint tenderness, effusion, or edema noted. No calf tenderness. Negative Homans sign bilaterally. Generally decreased muscle mass and tone. NEUROLOGICAL: Awake and alert 3. Moves all 4 limbs spontaneously. No obvious deficits noted. Assessment/Plan Assessment 72-year-old man with a diagnosis of metastatic adenocarcinoma of the lung, presently on palliative systemic chemotherapy under the care of the [facility] in [place]. Patient reports his most recent chemotherapy was about a week ago, he does not recall the exact name of the chemotherapy. For the past few weeks he has also had issues with recurrent GI bleeding, he was hospitalized at the [facility] in [place] with GI bleeding and symptomatic anemia. He now presents to [facility] with fatigue , weakness, tachycardia, and reported recurrent GI bleeding.Hemoglobin has dropped down to 6.9 g/dL this morning and he is receiving red cell transfusions. The GI service is evaluated to the patient and plan on performing an EGD either today or tomorrow. From the standpoint of his lung carcinoma, Imaging studies performed on 2017 indicate pleural-based metastases in the right hemithorax. He has a pleural drain in place which is utilized once or twice a week to drain off pleural fluid. Plan 1. Metastatic lung carcinoma: Reports having been on Nivolumab up until about a month ago, he reports his disease progressed at that time and he was transitioned to a new chemotherapy (he does not recall the name because he has had only one dose so far). He is treated in [place] by the [facility]. 2. GI bleeding Associated with anemia: Hemoglobin and hematocrit are stable at this time, no evidence of overt bleeding. Serum iron studies indicate a ferritin level of greater than 1100, there appears to be no indication of iron deficiency at this time. The serum iron studies are more consistent with anemia of chronic disease/chronic inflammation. I would advise transfusing to maintain hemoglobin over 8.5 g/dL her transfuse as needed should he actively bleed. Jose Rafael Quiroga MD February 01, 2018 07:45
[2018-02-01] MEDS: PROPRANOLOL HCL 20 MG TAB PO SCH ×2 (08:37→22:24)
[2018-02-01] MEDS: DOCUSATE SODIUM 50 MG/SENNA 8.6 MG TAB PO SCH ×2 (08:37→21:00)
[2018-02-01] MEDS: BUDESONIDE-FORMOTEROL 160/4.5 MCG INHALER INH SCH ×2 (08:37→21:00)
[2018-02-01] MEDS: VENLAFAXINE HCL XR 37.5 MG CAP PO SCH (08:37)
[2018-02-01] MEDS: SODIUM CHLORIDE 0.9% FLUSH 10 ML FLUSH IV FLUSH SCH ×2 (08:38→22:26)
[2018-02-01] MEDS: VANCOMYCIN 1,500 MG/NS 500 ML IV SCH ×2 (08:39)
[2018-02-01 09:12] LABS: BANDS 23 % (0-6); BASOPHILS 1 % (0-2); LYMPHOCYTES 6 % (9-44); MONOCYTES 7 % (0-8); NEUTROPHIL # MANUAL DIFF 6.6 TH/MM3 (1.8-7.7); POLYS (SEG NEUTROPHILS) 63 % (16-70); TOXIC GRANULATION 1+ (NORMAL)
--- NOTE | 2018-02-01 11:14 | HHI.GIFU ---
Subjective Remarks Pt denies nausea, vomiting, abdominal pain Was able to eat some eggs for breakfast Denies any changes in his stool consistency, denies blood in stool in colostomy bag (Ryanne Oro) Objective Vitals I&O Vital Signs Date Time Temp Pulse Resp B/P (MAP) Pulse Ox O2 Delivery O2 Flow Rate FiO2 02/01/18 07:44 92 Nasal Cannula 6.00 02/01/18 06:00 90 02/01/18 04:00 86 02/01/18 04:00 98.0 86 16 106/58 (74) 94 02/01/18 03:32 17 02/01/18 02:00 91 02/01/18 00:00 90 02/01/18 00:00 98.1 92 17 106/56 (73) 95 01/31/18 22:00 93 01/31/18 21:19 96 Nasal Cannula 6.00 01/31/18 20:00 98.2 102 20 121/58 (79) 95 01/31/18 20:00 102 01/31/18 18:00 109 01/31/18 17:00 107 01/31/18 16:00 98.0 103 23 116/57 (76) 89 01/31/18 16:00 103 01/31/18 15:48 98 Nasal Cannula 2.00 01/31/18 15:00 101 01/31/18 14:00 101 01/31/18 13:00 100 01/31/18 12:25 97.6 93 20 117/59 (78) 96 Nasal Cannula 2 01/31/18 12:15 95 20 106/56 (73) 96 Nasal Cannula 2 01/31/18 12:00 97.6 90 20 99/55 (70) 92 Nasal Cannula 2 I/O 01/31/18 01/31/18 01/31/18 02/01/18 02/01/18 02/01/18 07:00 15:00 23:00 07:00 15:00 23:00 Intake Total 815 ml 1100 ml 1100 ml Output Total 500 ml 900 ml 400 ml Balance -500 ml 815 ml 200 ml 700 ml Intake IV Total 615 ml 1100 ml 1100 ml Other 200 ml Output Urine Total 450 ml 500 ml 400 ml Stool Total 400 ml Gastric Drainage Total 50 ml # Bowel Movements 0 0 Laboratory Laboratory Tests Test 01/31/18 15:59 02/01/18 03:36 Hemoglobin 12.1 10.7 Hematocrit 36.3 32.0 White Blood Count 7.7 Red Blood Count 3.74 Mean Corpuscular Volume 85.6 Mean Corpuscular Hemoglobin 28.7 Mean Corpuscular Hemoglobin Concent 33.6 Red Cell Distribution Width 16.4 Platelet Count 156 Mean Platelet Volume 8.2 Neutrophils (%) (Auto) 76.0 Lymphocytes (%) (Auto) 14.8 Monocytes (%) (Auto) 7.2 Eosinophils (%) (Auto) 1.2 Basophils (%) (Auto) 0.8 Neutrophils # (Auto) 5.9 Lymphocytes # (Auto) 1.1 Monocytes # (Auto) 0.6 Eosinophils # (Auto) 0.1 Basophils # (Auto) 0.1 CBC Comment AUTO DIFF Differential Total Cells Counted 100 Neutrophils % (Manual) 63 Band Neutrophils % 23 Lymphocytes % 6 Monocytes % 7 Basophils % 1 Neutrophils # (Manual) 6.6 Differential Comment FINAL DIFF MANUAL Toxic Granulation 1+ Platelet Estimate NORMAL Platelet Morphology Comment NORMAL Blood Urea Nitrogen 19 Creatinine 1.60 Random Glucose 116 Calcium Level 8.0 Phosphorus Level 3.2 Magnesium Level 1.7 Sodium Level 137 Potassium Level 3.6 Chloride Level 100 Carbon Dioxide Level 29.2 Anion Gap 8 Estimat Glomerular Filtration Rate 43 Date/Time Source Procedure Growth Status 01/29/18 20:30 Blood Peripheral Aerobic Blood Culture - Preliminary NO GROWTH IN 3 DAYS Resulted 01/29/18 20:30 Blood Peripheral Anaerobic Blood Culture - Preliminary NO GROWTH IN 3 DAYS Resulted 01/29/18 20:39 Nasal Washing Influenza Types A,B Antigen (JOSE) - Final NEGATIVE FOR FLU A AND B ANTIGEN.... Complete 01/29/18 21:18 Urine Random Urine Urine Culture - Final <10,000 CFU/ML GRAM POSITIVE JOSE Complete Imaging Last Impressions Chest X-Ray 01/31/18 0000 Signed Impressions: CONCLUSION: 1. No significant interval change. 2. Loculated moderate right pleural effusion with associated lower lobe airspa ce disease. 3. Patchy diffuse airspace disease throughout the left lung with upper lobe pr edominance. 4. Right perihilar mass. CT Angiography 01/29/18 0000 Signed Impressions: CONCLUSION: 1. There is no evidence of PE for technique. 2. Loculated right pleural effusion with pleural thickening highly suspicious for pleural-based metastatic disease. 3. Bilateral parenchymal infiltrates may represent pneumonia and on the right side may be partially due to compressed lung and/or postobstructive pneumonitis . Masslike area is seen in right upper lobe extending to the right hilum. Abdomen/Pelvis CT 01/29/18 0000 Signed Impressions: CONCLUSION: Chronic and postsurgical changes and otherwise unremarkable. Physical Exam HEENT: Normocephalic; atraumatic CHEST: Even/unlabored CARDIAC: RRR ABDOMEN: Soft, nondistended, nontender; bowel sounds active. Colostomy SKIN: Normal; no rash; no jaundice. TYING MACHINE OPERATOR LUMBER: Alert and oriented times three. (Ryanne Oro) Assessment and Plan Plan Assessment: - Emesis, Hemoccult positive, anemia-normocytic Reports of emesis in the ER with some BRB. Per CHRISTIAN SCIENCE READER pt with no continued emesis since being transferred to ICU, has NGT to LIWS with small amount of green drainage. H/H 8.8/26.6 on admission- recheck hgb dropped to 6.9 last night- 3 U PRBCs have been ordered and are currently transfusing Unsure of last EGD or colonoscopy - Crohns disease S/P colectomy with colostomy in 2007 Reports no medication for Crohns since the surgery. stool is semi-formed and brown- no reports of bleeding through stoma. No Crohns medications listed on home medication list [facility] states there were some areas that needed to be cut out but denies them being polyps. CT abdomen and pelvis W IV contrast (01/29) --> Chronic and postsurgical changes and otherwise unremarkable - Lung cancer- receives chemotherapy ever 3 weeks, last treatment was last Tuesday (02/01) Pt S/P EGD yesterday. Denies nausea, vomiting, abdominal pain. Able to eat some eggs for breakfast. Drop in H/H noted today with no obvious GIB. [facility] as noted [facility]. Pt does not want another colonoscopy. Denies any obvious bleeding in his stool and black stools. Dr. Quiroga following. EGD --> Class D esophagitis, erythematous gastritis in the gastric body and gastric antrum, normal duodenal mucosa in the bulb and second portion of the duodenum Plan: EGD biopsy pending Protonix Hematology/oncology following GI will sign off, please reconsult as needed Have pt follow up with GI after DC Pt has been seen and examined by myself and Dr. Schaefer and this note is written on his behalf (Ryanne Oro) Physician Comments Seen and examined with BRIDGET, no bleeding. REports recent colonoscopy at [facility], does not wish to repeat. GI will sign off, fu at the PA after DC. Thank you (Ileana Schaefer MD) Ryanne Oro February 01, 2018 11:14 Ileana Schaefer MD February 01, 2018 16:23
--- NOTE | 2018-02-01 14:44 | ECHRPT ---
Indication: SOB CONCLUSIONS Normal left ventricular size. Wall thickness is normal. The left ventricular systolic function is mildly reduced with an estimated ejection fraction in the range of 45%. There was limited left ventricular wall motion assessment due to poor endocardial visualization. Atrial septal aneurysm is present Trace mitral valve regurgitation. There is trace tricuspid valve regurgitation. BP: / HR: Rhythm: MEASUREMENTS (Male / Female) Normal Values Technical Quality: 2D ECHO LV Diastolic Diameter PLAX 4.2 cm 4.2 - 5.9 / 3.9 - 5.3 cm LV Systolic Diameter PLAX 3.5 cm IVS Diastolic Thickness 1.1 cm 0.6 - 1.0 / 0.6 - 0.9 cm LVPW Diastolic Thickness 0.8 cm 0.6 - 1.0 / 0.6 - 0.9 cm LV Relative Wall Thickness 0.5 RV Internal Dim ED PLAX 1.7 cm DOPPLER Mitral E Point Velocity 49.9 cm/s Mitral A Point Velocity 72.6 cm/s Mitral E to A Ratio 0.7 TR Peak Velocity 293.0 cm/s TR Peak Gradient 34.3 mmHg Right Atrial Pressure 5.0 mmHg Pulmonary Artery Systolic Pressu 39.3 mmHg Right Ventricular Systolic Press 39.3 mmHg FINDINGS LEFT VENTRICLE Normal left ventricular size. Wall thickness is normal. The left ventricular systolic function is mildly reduced with an estimated ejection fraction in the range of 45%. There was limited left ventricular wall motion assessment due to poor endocardial visualization. RIGHT VENTRICLE Normal right ventricular size and systolic function. LEFT ATRIUM The left atrial size is normal. RIGHT ATRIUM The right atrial size is normal. ATRIAL SEPTUM Atrial septal aneurysm is present (benign finding). AORTA The aortic root and proximal ascending aorta are normal in size on limited imaging. MITRAL VALVE Trace mitral valve regurgitation. AORTIC VALVE Trileaflet aortic valve. No aortic valve stenosis or regurgitation. TRICUSPID VALVE There is trace tricuspid valve regurgitation. PULMONARY VALVE No pulmonary valve regurgitation or stenosis. VESSELS The inferior vena cava is normal in size. PERICARDIUM No pericardial effusion. Vince Messina MD, FACC, [facility] (Electronically Signed) Final Date:01 Feb 2018 14:42
--- NOTE | 2018-02-01 19:05 | HHI.PR ---
Subjective Remarks Patient says he is feeling all right. Denies any chest pain or shortness of breath. He reports continued blood from his colostomy. Objective Vital Signs Date Time Temp Pulse Resp B/P (MAP) Pulse Ox O2 Delivery O2 Flow Rate FiO2 02/01/18 18:00 93 02/01/18 17:00 90 02/01/18 16:00 98.5 88 21 122/71 (88) 97 02/01/18 16:00 88 02/01/18 15:00 84 02/01/18 14:00 89 02/01/18 13:00 88 02/01/18 12:00 98.2 86 17 118/56 (76) 93 02/01/18 12:00 86 02/01/18 11:00 83 02/01/18 10:00 80 02/01/18 09:00 80 02/01/18 08:00 89 02/01/18 08:00 98.0 89 20 133/60 (84) 97 02/01/18 07:44 92 Nasal Cannula 6.00 02/01/18 07:00 90 02/01/18 06:00 90 02/01/18 04:00 86 02/01/18 04:00 98.0 86 16 106/58 (74) 94 02/01/18 03:32 17 02/01/18 02:00 91 02/01/18 00:00 90 02/01/18 00:00 98.1 92 17 106/56 (73) 95 01/31/18 22:00 93 01/31/18 21:19 96 Nasal Cannula 6.00 01/31/18 20:00 98.2 102 20 121/58 (79) 95 01/31/18 20:00 102 I/O 01/31/18 01/31/18 01/31/18 02/01/18 02/01/18 02/01/18 07:00 15:00 23:00 07:00 15:00 23:00 Intake Total 815 ml 1100 ml 1100 ml Output Total 500 ml 900 ml 400 ml Balance -500 ml 815 ml 200 ml 700 ml Intake IV Total 615 ml 1100 ml 1100 ml Other 200 ml Output Urine Total 450 ml 500 ml 400 ml Stool Total 400 ml Gastric Drainage Total 50 ml # Bowel Movements 0 0 Result Diagram: 02/01/18 03302/01/18335 Objective Remarks GENERAL: patient lying in bed. Appears comfortable. Alert and oriented 3. SKIN: Warm and dry. HEAD: Normocephalic. EYES: No scleral icterus. No injection or drainage. NECK: Supple, trachea midline. No JVD. CARDIOVASCULAR: Regular rate and rhythm without murmurs, gallops, or rubs. RESPIRATORY: Breath sounds slightly diminished on the right. No accessory muscle use. GASTROINTESTINAL: Abdomen soft, non-tender, nondistended. colostomy without any surrounding erythema or leakage. MUSCULOSKELETAL: No cyanosis, or edema. BACK: Nontender without obvious deformity. No CVA tenderness. A/P Assessment and Plan //Sepsis Bandemia -Unclear source -Broad-spectrum antibiotics-Zosyn and vancomycin 01/29 urine culture, blood culture, sputum culture- NGTD -De-escalate based sensitivity = Continues in bandemia. = Culture is negative at this time. Plan on de-escalating antibiotics tomorrow if no further fevers. Appreciate hematology assistance. //Hypertension -Due to above -IVF decreased to 100cc/hr //GI bleed -Protonix IV twice daily -Gastroenterology consultation -EGD biopsies pending. No sign of acute bleeding. Follow-up H&H //COPD -DuoNeb scheduled and as needed -No indication for steroids at this time //Lung cancer //Right lung pleural effusion. 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 We will drained 1 L //DVT GI prophylaxis -Damián's and SCDs -Protonix IV infusion Discharge Planning plan to de-escalate antibiotics PT is following. Transfer to floor. Antonio Rincon MD February 01, 2018 19:05
[2018-02-01 21:36] LABS: HEMATOCRIT 34.9 % (39.0-51.0); HEMOGLOBIN 11.6 GM/DL (13.0-17.0)
[2018-02-01] MEDS: TEMAZEPAM 15 MG CAP PO PRN (22:24)
[2018-02-02] VITALS (16 sets, daily range): BP systolic 107–137; BP diastolic 55–62; PULSE 77–93; RESP 17–19; TEMP 97.7–98.4; O2SAT 90–100
[2018-02-02] MEDS: PANTOPRAZOLE SODIUM 40 MG VIAL IV PUSH SCH ×2 (00:30→11:24)
[2018-02-02] MEDS: SODIUM CHLOR 0.9% 1000 ML INJ 1,000 ML IV SCH ×3 (00:30→18:27)
[2018-02-02] MEDS: PIPERACIL-TAZO 4.5 GM PREMIX 100 ML IV SCH ×4 (00:30→16:56)
[2018-02-02] MEDS: RESP: ALBUTEROL 2.5 MG/IPRATROPIUM 0.5 MG NEB (SCH) INH ×4 (03:28→21:58)
[2018-02-02] MEDS: CHLORHEXIDINE GLUCONATE 2 % 1 PACK (2 CLOTHS) TOP SCH (04:00)
[2018-02-02] MEDS: MORPHINE SULFATE 4 MG/ML INJ IV PRN ×4 (05:18→22:31)
[2018-02-02 05:49] LABS: BASOPHIL % 0.2 % (0.0-2.0); EOSINOPHIL # 0.1 TH/MM3 (0-0.4); EOSINOPHIL % 0.8 % (0.0-4.0); HEMATOCRIT 36.3 % (39.0-51.0); LYMPH % 7.4 % (9.0-44.0); LYMPHOCYTE # 0.9 TH/MM3 (1.0-4.8); MEAN CORPUSCULAR HEMOGLOBIN 28.7 PG (27.0-34.0); MEAN CORPUSCULAR HGB CONC 32.9 % (32.0-36.0); MEAN PLATELET VOLUME 8.7 FL (7.0-11.0); MONOCYTE # 0.6 TH/MM3 (0-0.9); NEUT % 86.6 % (16.0-70.0); PLATELET COUNT 150 TH/MM3 (150-450); RED BLOOD COUNT 4.17 MIL/MM3 (4.50-5.90); RED CELL DISTRIBUTION WIDTH 16.2 % (11.6-17.2); WHITE BLOOD COUNT 12.7 TH/MM3 (4.0-11.0)
[2018-02-02 06:07] LABS: ALBUMIN 1.7 GM/DL (3.4-5.0); BICARBONATE 26.7 MEQ/L (21.0-32.0); CALCIUM 7.8 MG/DL (8.5-10.1); CREATININE 1.63 MG/DL (0.60-1.30); MAGNESIUM 1.6 MG/DL (1.5-2.5); PHOSPHORUS 3.2 MG/DL (2.5-4.9)
[2018-02-02] MEDS ORDERED: PHARMACY ORDERED LAB ONE (07:45)
[2018-02-02] MEDS: PROPRANOLOL HCL 20 MG TAB PO SCH ×2 (08:13→21:51)
[2018-02-02] MEDS: SODIUM CHLORIDE 0.9% FLUSH 10 ML FLUSH IV FLUSH PRN (08:13)
[2018-02-02] MEDS: VENLAFAXINE HCL XR 37.5 MG CAP PO SCH (08:13)
[2018-02-02] MEDS: DOCUSATE SODIUM 50 MG/SENNA 8.6 MG TAB PO SCH ×2 (08:13→21:00)
[2018-02-02] MEDS: VANCOMYCIN 1,500 MG/NS 500 ML IV SCH ×2 (08:14)
[2018-02-02] MEDS: BUDESONIDE-FORMOTEROL 160/4.5 MCG INHALER INH SCH ×2 (08:15→21:00)
[2018-02-02] MEDS: SODIUM CHLORIDE 0.9% FLUSH 10 ML FLUSH IV FLUSH SCH ×2 (11:24→21:51)
[2018-02-02] MEDS ORDERED: ONDANSETRON ODT 4 MG TAB PO PRN (15:00)
--- NOTE | 2018-02-02 16:26 | HHI.PR ---
Subjective Remarks Patient says he is feeling well. Says he feels like going home. Oxygen has been down today in the low 80s off of nasal cannula. Patient has oxygen at home which she does not use. Objective Vital Signs Date Time Temp Pulse Resp B/P (MAP) Pulse Ox O2 Delivery O2 Flow Rate FiO2 02/02/18 16:00 98.0 86 18 111/59 (76) 94 02/02/18 16:00 86 02/02/18 14:00 84 02/02/18 12:00 77 02/02/18 12:00 97.9 77 17 107/58 (74) 99 02/02/18 10:00 80 02/02/18 09:02 12 02/02/18 08:24 96 Nasal Cannula 3.00 02/02/18 08:00 97.7 80 19 135/59 (84) 100 02/02/18 08:00 80 02/02/18 06:00 82 02/02/18 04:00 98.3 82 18 127/58 (81) 100 02/02/18 04:00 82 02/02/18 03:30 99 Simple Mask 7.00 02/02/18 02:00 82 02/02/18 00:00 98.4 79 19 109/55 (73) 96 02/02/18 00:00 79 02/01/18 23:33 94 Nasal Cannula 3.00 02/01/18 22:00 93 02/01/18 20:48 96 Nasal Cannula 3.00 02/01/18 20:00 100 02/01/18 20:00 98.7 100 20 116/57 (76) 97 02/01/18 18:00 93 02/01/18 17:00 90 I/O 02/01/18 02/01/18 02/01/18 02/02/18 02/02/18 02/02/18 07:00 15:00 23:00 07:00 15:00 23:00 Intake Total 1100 ml 1615 ml 1100 ml Output Total 400 ml 1100 ml 675 ml Balance 700 ml 1615 ml 0 ml -675 ml Intake Oral 900 ml IV Total 1100 ml 1615 ml 200 ml Output Urine Total 400 ml 900 ml 675 ml Stool Total 200 ml # Bowel Movements 0 0 Result Diagram: 5/31/18 0512 5/31/18 0512 Objective Remarks GENERAL: patient lying in bed. Appears comfortable. Alert and oriented 3. SKIN: Warm and dry. HEAD: Normocephalic. EYES: No scleral icterus. No injection or drainage. NECK: Supple, trachea midline. No JVD. CARDIOVASCULAR: Regular rate and rhythm without murmurs, gallops, or rubs. RESPIRATORY: Breath sounds slightly diminished on the right. No accessory muscle use. No appreciable change. Pleurx catheter in right chest without any surrounding erythema. GASTROINTESTINAL: Abdomen soft, non-tender, nondistended. colostomy without any surrounding erythema or leakage. MUSCULOSKELETAL: No cyanosis, or edema. BACK: Nontender without obvious deformity. No CVA tenderness. A/P Assessment and Plan //Sepsis Bandemia -Unclear source -Broad-spectrum antibiotics-Zosyn and vancomycin 01/29 urine culture, blood culture, sputum culture- NGTD -De-escalate based sensitivity = 02/02. White blood cell count up to 12.7 today. No further fevers. Right lung pleural effusion with Pleurx catheter. Will drain Pleurx catheter for fluid today. Blood culture with a 1 out of 4 bottles positive for staph epidermidis. This is almost certainly an 10 minute. Pending pleural fluid analysis, will continue on current antibiotics. Will consult infectious disease to make sure we have appropriate antibiotics for infection source. //Hypertension -Due to above Off IV fluids. //GI bleed= hemoglobin had been down to 6.5 on admission. -Protonix IV twice daily -Gastroenterology consultation -EGD biopsies pending. No sign of acute bleeding. Follow-up H&H = If patient rebleeds, recommend tagged red blood cell scan or angiogram by IR //COPD -DuoNeb scheduled and as needed -No indication for steroids at this time //Lung cancer //Right lung pleural effusion. 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 We will drained 1 L = 02/02. Discussed with nurse and nurse retail analytics manager on floor. Will plan for drainage of 1 L from right pleural space Via Pleurx catheter today. Appreciate nursing assistance. //DVT GI prophylaxis -Damián's and SCDs -Protonix IV twice daily Discharge Planning plan to de-escalate antibiotics PT is following. Transfer to floor. Antonio Rincon MD February 02, 2018 16:26
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
[2018-02-02] MEDS: TEMAZEPAM 15 MG CAP PO PRN (22:31)
[2018-02-02 22:52] LABS: PLEURAL FLUID LYMPHS 64 %; PLEURAL FLUID MONOS 6 %; PLEURAL FLUID POLYS (SEGS) 30 %
[2018-02-02 22:56] LABS: PLEURAL FLUID WBC 350 /MM3 (0-10)
[2018-02-02 22:57] LABS: PLEURAL FLUID RBC 4650 /MM3 (0-0)
[2018-02-03] VITALS (20 sets, daily range): BP systolic 100–134; BP diastolic 53–73; PULSE 81–99; RESP 16–35; TEMP 98–98.6; O2SAT 92–100
[2018-02-03] MEDS: PANTOPRAZOLE SODIUM 40 MG VIAL IV PUSH SCH ×3 (00:45→22:55)
[2018-02-03] MEDS: PIPERACIL-TAZO 4.5 GM PREMIX 100 ML IV SCH ×5 (00:45→22:56)
[2018-02-03] MEDS: CHLORHEXIDINE GLUCONATE 2 % 1 PACK (2 CLOTHS) TOP SCH (04:00)
[2018-02-03] MEDS: MORPHINE SULFATE 4 MG/ML INJ IV PRN (04:18)
[2018-02-03] MEDS: SODIUM CHLOR 0.9% 1000 ML INJ 1,000 ML IV SCH ×2 (04:49→16:24)
[2018-02-03 08:01] LABS: BASOPHIL # 0.1 TH/MM3 (0-0.2); BASOPHIL % 0.4 % (0.0-2.0); EOSINOPHIL # 0.1 TH/MM3 (0-0.4); EOSINOPHIL % 0.7 % (0.0-4.0); HEMOGLOBIN 11.2 GM/DL (13.0-17.0); LYMPH % 6.7 % (9.0-44.0); LYMPHOCYTE # 1.3 TH/MM3 (1.0-4.8); MEAN CORPUSCULAR HEMOGLOBIN 28.2 PG (27.0-34.0); MEAN CORPUSCULAR HGB CONC 32.8 % (32.0-36.0); MEAN PLATELET VOLUME 8.5 FL (7.0-11.0); MONO % 3.6 % (0.0-8.0); MONOCYTE # 0.7 TH/MM3 (0-0.9); NEUT % 88.6 % (16.0-70.0); PLATELET COUNT 192 TH/MM3 (150-450); RED BLOOD COUNT 3.96 MIL/MM3 (4.50-5.90); RED CELL DISTRIBUTION WIDTH 16.2 % (11.6-17.2); WHITE BLOOD COUNT 19.1 TH/MM3 (4.0-11.0)
[2018-02-03 08:34] LABS: ALBUMIN 1.6 GM/DL (3.4-5.0); ALT (GPT) LESS THAN 6 U/L (12-78); AST (GOT) 13 U/L (15-37); BICARBONATE 24.2 MEQ/L (21.0-32.0); BLOOD UREA NITROGEN 13 MG/DL (7-18); CALCIUM 7.8 MG/DL (8.5-10.1); CHLORIDE 102 MEQ/L (98-107); CREATININE 1.56 MG/DL (0.60-1.30); GLOMERULAR FILTRATION RATE 44 ML/MIN (>89); GLUCOSE,RANDOM 135 MG/DL (74-106); SODIUM (NA) 138 MEQ/L (136-145)
[2018-02-03 08:37] LABS: ALKALINE PHOSPHATASE 115 U/L (45-117); TOTAL BILIRUBIN ADULT 0.5 MG/DL (0.2-1.0); TOTAL PROTEIN 5.4 GM/DL (6.4-8.2)
[2018-02-03] MEDS: SODIUM CHLORIDE 0.9% FLUSH 10 ML FLUSH IV FLUSH SCH ×2 (09:00→20:51)
--- NOTE | 2018-02-03 09:14 | HHI.PR ---
Subjective Remarks Nursing denies any deterioration since last night. Currently is on 2 L. Patient says he feels well, really wants to go home. Objective Vital Signs Date Time Temp Pulse Resp B/P (MAP) Pulse Ox O2 Delivery O2 Flow Rate FiO2 02/03/18 06:00 92 02/03/18 04:23 16 02/03/18 04:00 98.3 94 16 125/59 (81) 92 02/03/18 04:00 94 02/03/18 02:00 90 02/03/18 00:00 88 02/03/18 00:00 98.0 90 16 100/53 (69) 93 02/02/18 23:00 90 Nasal Cannula 3.00 02/02/18 22:00 92 02/02/18 21:58 95 Nasal Cannula 2.00 02/02/18 20:00 98.2 93 18 137/62 (87) 94 02/02/18 20:00 93 02/02/18 18:00 89 02/02/18 16:00 98.0 86 18 111/59 (76) 94 02/02/18 16:00 86 02/02/18 14:00 84 02/02/18 12:00 77 02/02/18 12:00 97.9 77 17 107/58 (74) 99 02/02/18 10:00 80 I/O 02/02/18 02/02/18 02/02/18 02/03/18 02/03/18 02/03/18 07:00 15:00 23:00 07:00 15:00 23:00 Intake Total 1610 ml 1060 ml 1440 ml Output Total 675 ml 675 ml 1750 ml Balance -675 ml 1610 ml 385 ml -310 ml Intake Oral 960 ml 240 ml IV Total 1610 ml 100 ml 1200 ml Output Urine Total 675 ml 575 ml 800 ml Stool Total 100 ml Drainage Total 950 ml # Voids 1 # Bowel Movements 0 0 Result Diagram: 02/03/1861802/03/18618 Objective Remarks Course breath sounds with scattered rhonchi bilaterally Unlabored breathing, lying down On 3 L No lower extremity edema Awake alert A/P Assessment and Plan //Sepsis Sepsis element resolved Suspected pneumonia -Broad-spectrum antibiotics-now on monotherapy with Zosyn per infectious disease Blood cultures negative, urine culture negative White count is rising from 12 to 19k, monitor Had Pleurx catheter drained yesterday //Hypertension -Due to above Off IV fluids. //GI bleed -Now stable, H&H holding steady -Protonix IV twice daily -EGD biopsies pending. No sign of acute bleeding. Follow-up H&H //COPD -DuoNeb scheduled and as needed -No indication for steroids at this time //Lung cancer //Right lung pleural effusion. 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 //DVT GI prophylaxis -Damián's and SCDs -Protonix IV twice daily Discharge Planning De-escalating antibiotic PT is following. Transfer to [facility] order has been placed since 2 days agoJose Juan Nevarez MD Feb 03, 2018 09:14
[2018-02-03] MEDS: BUDESONIDE-FORMOTEROL 160/4.5 MCG INHALER INH SCH ×2 (09:28→20:49)
[2018-02-03] MEDS: PROPRANOLOL HCL 20 MG TAB PO SCH ×2 (09:29→22:55)
[2018-02-03] MEDS: VENLAFAXINE HCL XR 37.5 MG CAP PO SCH (09:29)
[2018-02-03] MEDS: DOCUSATE SODIUM 50 MG/SENNA 8.6 MG TAB PO SCH ×2 (09:29→20:51)
[2018-02-03] MEDS ORDERED: BENZONATATE 100 MG CAP PO PRN (10:00)
[2018-02-03 10:45] LABS: BANDS 16 % (0-6); BASOPHILS 1 % (0-2); LYMPHOCYTES 3 % (9-44); MONOCYTES 2 % (0-8); POLYS (SEG NEUTROPHILS) 78 % (16-70); TOXIC GRANULATION 1+ (NORMAL)
[2018-02-03] MEDS ORDERED: POTASSIUM CHLORIDE 25 MEQ EFFERVESCENT TAB PO ONE (15:00)
--- NOTE | 2018-02-03 17:07 | HHI.IDPN ---
Subjective Subjective Remarks pt is seen earlier today he feels better he denies weakness R pleural fluid - no growth @ 24 hrs moderate WBC, no orgs WBC up to 19 K Antibiotics zosyn Allergies: Coded Allergies: No Known Allergies (Unverified , 04/26/16) Objective . Vital Signs Date Time Temp Pulse Resp B/P (MAP) Pulse Ox O2 Delivery O2 Flow Rate FiO2 02/03/18 15:10 98.1 85 18 127/73 (91) 98 02/03/18 14:00 85 02/03/18 14:00 85 22 120/57 (78) 100 02/03/18 13:45 90 31 120/57 (78) 97 02/03/18 13:30 99 35 134/60 (84) 95 02/03/18 13:15 87 22 98 02/03/18 13:00 85 02/03/18 13:00 85 24 134/60 (84) 98 02/03/18 12:45 86 20 134/60 (84) 93 02/03/18 12:30 84 19 97 02/03/18 12:15 84 19 129/58 (81) 99 02/03/18 12:00 83 02/03/18 12:00 83 20 129/58 (81) 99 02/03/18 10:00 85 02/03/18 09:35 97 Nasal Cannula 3.00 02/03/18 09:00 85 20 115/59 (77) 98 02/03/18 09:00 85 02/03/18 08:00 98.6 87 20 123/60 (81) 99 02/03/18 08:00 87 02/03/18 06:00 92 02/03/18 04:23 16 02/03/18 04:00 98.3 94 16 125/59 (81) 92 02/03/18 04:00 94 02/03/18 02:00 90 02/03/18 00:00 88 02/03/18 00:00 98.0 90 16 100/53 (69) 93 02/02/18 23:00 90 Nasal Cannula 3.00 02/02/18 22:00 92 02/02/18 21:58 95 Nasal Cannula 2.00 02/02/18 20:00 98.2 93 18 137/62 (87) 94 02/02/18 20:00 93 02/02/18 18:00 89 . Laboratory Tests Test 02/01/18 20:26 02/02/18 05:12 02/03/18 06:19 Hemoglobin 11.6 GM/DL 12.0 GM/DL 11.2 GM/DL Hematocrit 34.9 % 36.3 % 34.0 % White Blood Count 12.7 TH/MM3 19.1 TH/MM3 Red Blood Count 4.17 MIL/MM3 3.96 MIL/MM3 Mean Corpuscular Volume 87.0 FL 86.0 FL Mean Corpuscular Hemoglobin 28.7 PG 28.2 PG Mean Corpuscular Hemoglobin Concent 32.9 % 32.8 % Red Cell Distribution Width 16.2 % 16.2 % Platelet Count 150 TH/MM3 192 TH/MM3 Mean Platelet Volume 8.7 FL 8.5 FL Neutrophils (%) (Auto) 86.6 % 88.6 % Lymphocytes (%) (Auto) 7.4 % 6.7 % Monocytes (%) (Auto) 5.0 % 3.6 % Eosinophils (%) (Auto) 0.8 % 0.7 % Basophils (%) (Auto) 0.2 % 0.4 % Neutrophils # (Auto) 11.0 TH/MM3 17.0 TH/MM3 Lymphocytes # (Auto) 0.9 TH/MM3 1.3 TH/MM3 Monocytes # (Auto) 0.6 TH/MM3 0.7 TH/MM3 Eosinophils # (Auto) 0.1 TH/MM3 0.1 TH/MM3 Basophils # (Auto) 0.0 TH/MM3 0.1 TH/MM3 CBC Comment DIFF FINAL AUTO DIFF Differential Comment FINAL DIFF MANUAL Differential Total Cells Counted 100 Neutrophils % (Manual) 78 % Band Neutrophils % 16 % Lymphocytes % 3 % Monocytes % 2 % Basophils % 1 % Neutrophils # (Manual) 18.0 TH/MM3 Toxic Granulation 1+ Platelet Estimate NORMAL Platelet Morphology Comment NORMAL Laboratory Tests Test 02/01/18 20:26 02/02/18 05:12 02/03/18 06:19 B-Type Natriuretic Peptide 135 PG/ML Blood Urea Nitrogen 16 MG/DL 13 MG/DL Creatinine 1.63 MG/DL 1.56 MG/DL Random Glucose 116 MG/DL 135 MG/DL Albumin 1.7 GM/DL 1.6 GM/DL Calcium Level 7.8 MG/DL 7.8 MG/DL Phosphorus Level 3.2 MG/DL Magnesium Level 1.6 MG/DL Sodium Level 137 MEQ/L 138 MEQ/L Potassium Level 3.6 MEQ/L 3.4 MEQ/L Chloride Level 102 MEQ/L 102 MEQ/L Carbon Dioxide Level 26.7 MEQ/L 24.2 MEQ/L Anion Gap 8 MEQ/L 12 MEQ/L Estimat Glomerular Filtration Rate 42 ML/MIN 44 ML/MIN Lactate Dehydrogenase 337 U/L Total Protein 5.4 GM/DL Alkaline Phosphatase 115 U/L Aspartate Amino Transf (AST/SGOT) 13 U/L Alanine Aminotransferase (ALT/SGPT) LESS THAN 6 U/L Total Bilirubin 0.5 MG/DL Microbiology Date/Time Source Procedure Growth Status 02/02/18 21:15 Fluid Pleural Fluid Gram Stain - Final Resulted 02/02/18 21:15 Fluid Pleural Fluid Body Fluid Culture - Preliminary NO GROWTH IN 24 HOURS. Resulted Imaging Last Impressions Chest X-Ray 01/31/18 0000 Signed Impressions: CONCLUSION: 1. No significant interval change. 2. Loculated moderate right pleural effusion with associated lower lobe airspa ce disease. 3. Patchy diffuse airspace disease throughout the left lung with upper lobe pr edominance. 4. Right perihilar mass. CT Angiography 01/29/18 0000 Signed Impressions: CONCLUSION: 1. There is no evidence of PE for technique. 2. Loculated right pleural effusion with pleural thickening highly suspicious for pleural-based metastatic disease. 3. Bilateral parenchymal infiltrates may represent pneumonia and on the right side may be partially due to compressed lung and/or postobstructive pneumonitis . Masslike area is seen in right upper lobe extending to the right hilum. Abdomen/Pelvis CT 01/29/18 Signed Impressions: CONCLUSION: Chronic and postsurgical changes and otherwise unremarkable. Physical Exam CONSTITUTIONAL/GENERAL: This is an adequately nourished patient, in no apparent distress. TUBES/LINES/DRAINS: R pleural catheter covererd byn intact dressing SKIN: No jaundice, rashes, immunerable solar elastosis lesions. No wounds seen anteriorly. Skin temperature appropriate. Not diaphoretic. CARDIOVASCULAR: Regular rate and rhythm without murmurs, gallops, or rubs. No JVD. Peripheral pulses symmetric. RESPIRATORY/CHEST: Symmetric, unlabored respirations. Clear to auscultation. Breath sounds diminishe on the R and he has some rhonchi on the right too. No wheezes, rales, GASTROINTESTINAL: Abdomen soft, non-tender, nondistended. No hepato-splenomegaly , or palpable masses. No guarding. Bowel sounds present. Stom,a in place MUSCULOSKELETAL: Extremities without clubbing, cyanosis, or edema. No joint tenderness or effusion noted. No calf tenderness. No mottling or clubbing. NEUROLOGICAL: Awake and alert. Motor and sensory grossly within normal limits. Follows commands. Cognitively sharp. Moves all extremities. PSYCHIATRIC: calm, cooperative Assessment & Plan Remarks . right upper lobe lung cancer postobstructive pneumonitis, R lung - this is most likley what is giving pt low grade fevers/ leukocytosis Low grade coag neg staph bacteremia, likley contaminant Renal insufficiency ? vanco contributing Rec's: sputum clx if feasible fu pleural fluid clx cont zosyn fu wbc fu clinically anticipate transition to oral abx Mayela Messina MD Feb 03, 2018 17:07
[2018-02-03] MEDS: ACETAMINOPHEN/HYDROcodone 325 MG/5 MG TAB PO PRN ×2 (18:49→22:55)
[2018-02-03] MEDS: TEMAZEPAM 15 MG CAP PO PRN (22:55)
[2018-02-04] VITALS: BP 130/75; PULSE 66; PULSE 96; RESP 20; TEMP 97.9; O2SAT 94
[2018-02-04 04:00] VITALS: BP 108/56; PULSE 91; PULSE 92; RESP 18; TEMP 98.4; O2SAT 94
[2018-02-04] MEDS: CHLORHEXIDINE GLUCONATE 2 % 1 PACK (2 CLOTHS) TOP SCH (04:00)
[2018-02-04] MEDS: PIPERACIL-TAZO 4.5 GM PREMIX 100 ML IV SCH ×3 (04:43→19:19)
[2018-02-04] MEDS: ACETAMINOPHEN/HYDROcodone 325 MG/5 MG TAB PO PRN ×2 (04:53→12:05)
[2018-02-04 05:44] LABS: AUTOMATED NEUTROPHIL # 20.6 TH/MM3 (1.8-7.7); BASOPHIL % 0.2 % (0.0-2.0); EOSINOPHIL # 0.1 TH/MM3 (0-0.4); EOSINOPHIL % 0.5 % (0.0-4.0); HEMATOCRIT 34.2 % (39.0-51.0); HEMOGLOBIN 11.4 GM/DL (13.0-17.0); LYMPH % 5.9 % (9.0-44.0); LYMPHOCYTE # 1.3 TH/MM3 (1.0-4.8); MEAN CELL VOLUME 85.9 FL (80.0-100.0); MEAN CORPUSCULAR HEMOGLOBIN 28.5 PG (27.0-34.0); MEAN CORPUSCULAR HGB CONC 33.2 % (32.0-36.0); MEAN PLATELET VOLUME 8.1 FL (7.0-11.0); MONO % 2.2 % (0.0-8.0); MONOCYTE # 0.5 TH/MM3 (0-0.9); NEUT % 91.2 % (16.0-70.0); PLATELET COUNT 209 TH/MM3 (150-450); RED BLOOD COUNT 3.99 MIL/MM3 (4.50-5.90); RED CELL DISTRIBUTION WIDTH 16.4 % (11.6-17.2); WHITE BLOOD COUNT 22.6 TH/MM3 (4.0-11.0)
[2018-02-04 05:56] LABS: CREATININE 1.47 MG/DL (0.60-1.30)
--- NOTE | 2018-02-04 09:01 | HHI.PR ---
Subjective Remarks Pt seen and examined. AFVSS. No acute events overnight. Pt states he feels fine and wants to go home. Endorses stable dyspnea and dry cough. No CP, hemoptysis, abdominal pain, N/V. Tolerating PO. Feels weak. Reportedly told nursing he takes Lortab 10 mg at home and requests to increase his dose. Objective Vital Signs Date Time Temp Pulse Resp B/P (MAP) Pulse Ox O2 Delivery O2 Flow Rate FiO2 02/04/18 04:00 98.4 91 18 108/56 (73) 94 02/04/18 04:00 92 02/04/18 00:00 97.9 96 20 130/75 (93) 94 02/04/18 00:00 66 02/03/18 20:00 90 02/03/18 20:00 98.6 87 20 125/71 (89) 95 02/03/18 15:16 81 02/03/18 15:10 98.1 85 18 127/73 (91) 98 02/03/18 14:00 85 02/03/18 14:00 85 22 120/57 (78) 100 02/03/18 13:45 90 31 120/57 (78) 97 02/03/18 13:30 99 35 134/60 (84) 95 02/03/18 13:15 87 22 98 02/03/18 13:00 85 02/03/18 13:00 85 24 134/60 (84) 98 02/03/18 12:45 86 20 134/60 (84) 93 02/03/18 12:30 84 19 97 02/03/18 12:15 84 19 129/58 (81) 99 02/03/18 12:00 83 02/03/18 12:00 83 20 129/58 (81) 99 02/03/18 10:00 85 02/03/18 09:35 97 Nasal Cannula 3.00 02/03/18 09:00 85 20 115/59 (77) 98 02/03/18 09:00 85 I/O 02/03/18 02/03/18 02/03/18 02/04/18 02/04/18 02/04/18 07:00 15:00 23:00 07:00 15:00 23:00 Intake Total 1440 ml 360 ml 600 ml Output Total 1750 ml 925 ml Balance -310 ml 360 ml -325 ml Intake Oral 240 ml 360 ml 400 ml IV Total 1200 ml 200 ml Output Urine Total 800 ml 925 ml Drainage Total 950 ml # Voids 1 # Bowel Movements 0 Result Diagram: 02/04/1839902/04/18399 Objective Remarks GENERAL: Elderly male resting in bed NAD. SKIN: Warm and dry. HEENT: AT/NC. Pupils equal and round. MMM. CHEST: Dressing over R pleural catheter. HEART: RRR no m/r/g. LUNGS: Diminished breath sounds and poor respiratory effort. ABDOMEN: +BS, soft, NT, ND. EXTREMITIES: No LE edema. NEURO: Awake and alert. A/P Assessment and Plan 72 YOWM with metastatic lung adenocarcinoma and Crohn's disease admitted on for GI bleed. 1. GI bleed with symptomatic acute blood loss anemia - Hemoglobin 8.8 on admission and dropped to 6.9 within a few hours - s/p 3 units RBCs - Hemoglobin has remained stable around 11 - Colonoscopy recently done within the last week or so through the MI; patient refusing any further colonoscopy at this time - GI consulted, s/p EGD 01/31 showing esophagitis and erythematous gastritis. Biopsy pending - Heme/onc following; recommend transfusing to maintain Hb>8 - Continue Protonix 40 mg IV BID, change to PO tomorrow - Monitor CBC 2. Postobstructive pneumonitis R lung - WBC up to 22.6 today. Remains afebrile but will recheck blood cultures, U/A, and CXR since white count was normal when those studies were previously done - ID following, discontinued vanco given rising creatinine. Recommend continuing Zosyn - Pleural fluid culture negative - 1 out of 4 blood cultures with staph epidermidis, likely contaminant 3. Acute on chronic kidney disease - Creatinine improving since Vanco was discontinued - Continue to monitor and avoid nephrotoxic agents 4. 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 Crohn's disease - S/P colectomy with colostomy - Not an acute exacerbation at this time 6. COPD - Continue home Symbicort - Supplemental O2 - DuoNeb PRN 7. Depression - Continue home Effexor 8. HTN - Stable, continue home propranolol DVT prophylaxis: Winnie Kaur MD Feb 04, 2018 09:01
[2018-02-04 09:10] VITALS: BP 103/51; PULSE 78; RESP 16; TEMP 98.3; O2SAT 96
[2018-02-04] MEDS: BUDESONIDE-FORMOTEROL 160/4.5 MCG INHALER INH SCH ×2 (09:16→21:21)
[2018-02-04] MEDS: VENLAFAXINE HCL XR 37.5 MG CAP PO SCH (09:16)
[2018-02-04] MEDS: PROPRANOLOL HCL 20 MG TAB PO SCH ×2 (09:17→21:21)
[2018-02-04] MEDS: DOCUSATE SODIUM 50 MG/SENNA 8.6 MG TAB PO SCH ×2 (09:17→21:20)
[2018-02-04] MEDS: SODIUM CHLORIDE 0.9% FLUSH 10 ML FLUSH IV FLUSH SCH ×2 (09:18→21:21)
--- NOTE | 2018-02-04 10:19 | HHI.FF ---
Face to Face Verification Diagnosis: (1) Pneumonitis (2) Sepsis (3) Adenocarcinoma of lung (4) Pleural effusion, right (5) [id number] kidney injury (6) Urinary retention due to benign prostatic hyperplasia Physical Therapy Order: Evaluate and Treat, Improve ambulation, Strength and gait training Home Health Nursing Order: Nursing assessment with vital signs I have seen patient Jean Paul Urias on 02/04/18. My clinical findings support the need for the requested home health care services because: Patient has SOB Deconditioned w/ increased weakness Limited ability to care for self High risk of falls I certify that my clinical findings support that this patient is homebound because: Unsteady gait/balance Winnie Short MD Feb 04, 2018 10:19
[2018-02-04] MEDS: SODIUM CHLORIDE 0.9% FLUSH 10 ML FLUSH IV FLUSH PRN (12:06)
[2018-02-04] MEDS: PANTOPRAZOLE SODIUM 40 MG VIAL IV PUSH SCH (12:06)
[2018-02-04] MEDS: ACETAMINOPHEN/HYDROcodone 325 MG/10 MG TAB PO PRN ×3 (14:14→22:22)
--- NOTE | 2018-02-04 14:24 | HHI.IDPN ---
Subjective Subjective Remarks pt is seen earlier today afebrile no c/o he wants to go home R pleural fluid - still no growth WBC up to 22 K Antibiotics zosyn Allergies: Coded Allergies: No Known Allergies (Unverified , 04/26/16) Objective . Vital Signs Date Time Temp Pulse Resp B/P (MAP) Pulse Ox O2 Delivery O2 Flow Rate FiO2 02/04/18 09:10 98.3 78 16 103/51 (68) 96 02/04/18 04:00 98.4 91 18 108/56 (73) 94 02/04/18 04:00 92 02/04/18 00:00 97.9 96 20 130/75 (93) 94 02/04/18 00:00 66 02/03/18 20:00 90 02/03/18 20:00 98.6 87 20 125/71 (89) 95 02/03/18 15:16 81 02/03/18 15:10 98.1 85 18 127/73 (91) 98 . Laboratory Tests Test 02/03/18 06:19 02/04/18 04:00 White Blood Count 19.1 TH/MM3 22.6 TH/MM3 Red Blood Count 3.96 MIL/MM3 3.99 MIL/MM3 Hemoglobin 11.2 GM/DL 11.4 GM/DL Hematocrit 34.0 % 34.2 % Mean Corpuscular Volume 86.0 FL 85.9 FL Mean Corpuscular Hemoglobin 28.2 PG 28.5 PG Mean Corpuscular Hemoglobin Concent 32.8 % 33.2 % Red Cell Distribution Width 16.2 % 16.4 % Platelet Count 192 TH/MM3 209 TH/MM3 Mean Platelet Volume 8.5 FL 8.1 FL Neutrophils (%) (Auto) 88.6 % 91.2 % Lymphocytes (%) (Auto) 6.7 % 5.9 % Monocytes (%) (Auto) 3.6 % 2.2 % Eosinophils (%) (Auto) 0.7 % 0.5 % Basophils (%) (Auto) 0.4 % 0.2 % Neutrophils # (Auto) 17.0 TH/MM3 20.6 TH/MM3 Lymphocytes # (Auto) 1.3 TH/MM3 1.3 TH/MM3 Monocytes # (Auto) 0.7 TH/MM3 0.5 TH/MM3 Eosinophils # (Auto) 0.1 TH/MM3 0.1 TH/MM3 Basophils # (Auto) 0.1 TH/MM3 0.0 TH/MM3 CBC Comment AUTO DIFF DIFF FINAL Differential Total Cells Counted 100 Neutrophils % (Manual) 78 % Band Neutrophils % 16 % Lymphocytes % 3 % Monocytes % 2 % Basophils % 1 % Neutrophils # (Manual) 18.0 TH/MM3 Differential Comment FINAL DIFF MANUAL Toxic Granulation 1+ Platelet Estimate NORMAL Platelet Morphology Comment NORMAL Laboratory Tests Test 02/03/18 06:19 02/04/18 04:00 Blood Urea Nitrogen 13 MG/DL Creatinine 1.56 MG/DL 1.47 MG/DL Random Glucose 135 MG/DL Total Protein 5.4 GM/DL Albumin 1.6 GM/DL Calcium Level 7.8 MG/DL Alkaline Phosphatase 115 U/L Aspartate Amino Transf (AST/SGOT) 13 U/L Alanine Aminotransferase (ALT/SGPT) LESS THAN 6 U/L Total Bilirubin 0.5 MG/DL Sodium Level 138 MEQ/L Potassium Level 3.4 MEQ/L Chloride Level 102 MEQ/L Carbon Dioxide Level 24.2 MEQ/L Anion Gap 12 MEQ/L Estimat Glomerular Filtration Rate 44 ML/MIN 47 ML/MIN Microbiology Date/Time Source Procedure Growth Status 02/02/18 21:15 Fluid Pleural Fluid Gram Stain - Final Resulted 02/02/18 21:15 Fluid Pleural Fluid Body Fluid Culture - Preliminary NO GROWTH IN 48 HOURS. Resulted Imaging Last Impressions Chest X-Ray 01/31/18 0000 Signed Impressions: CONCLUSION: 1. No significant interval change. 2. Loculated moderate right pleural effusion with associated lower lobe airspa ce disease. 3. Patchy diffuse airspace disease throughout the left lung with upper lobe pr edominance. 4. Right perihilar mass. CT Angiography 01/29/18 0000 Signed Impressions: CONCLUSION: 1. There is no evidence of PE for technique. 2. Loculated right pleural effusion with pleural thickening highly suspicious for pleural-based metastatic disease. 3. Bilateral parenchymal infiltrates may represent pneumonia and on the right side may be partially due to compressed lung and/or postobstructive pneumonitis . Masslike area is seen in right upper lobe extending to the right hilum. Abdomen/Pelvis CT 01/29/18 0000 Signed Impressions: CONCLUSION: Chronic and postsurgical changes and otherwise unremarkable. Physical Exam CONSTITUTIONAL/GENERAL: This is an adequately nourished patient, in no apparent distress. TUBES/LINES/DRAINS: R pleural catheter in place SKIN: No jaundice, rashes, immunerable solar elastosis lesions. No wounds seen anteriorly. Skin temperature appropriate. Not diaphoretic. CARDIOVASCULAR: Regular rate and rhythm without murmurs, gallops, or rubs. No JVD. Peripheral pulses symmetric. RESPIRATORY/CHEST: Symmetric, unlabored respirations. Clear to auscultation. Breath sounds diminishe on the R and he has some rhonchi on the right too. No wheezes, rales, GASTROINTESTINAL: Abdomen soft, non-tender, nondistended. No hepato-splenomegaly , or palpable masses. No guarding. Bowel sounds present. Stom,a in place MUSCULOSKELETAL: Extremities without clubbing, cyanosis, or edema. No joint tenderness or effusion noted. No calf tenderness. No mottling or clubbing. NEUROLOGICAL: Awake and alert. Motor and sensory grossly within normal limits. Follows commands. Cognitively sharp. Moves all extremities. PSYCHIATRIC: calm, cooperative Assessment & Plan Remarks . right upper lobe lung cancer postobstructive pneumonitis, R lung - this is most likley what is giving pt low grade fevers/ leukocytosis Low grade coag neg staph bacteremia, likley contaminant Renal insufficiency ? vanco contributing- better after vanco was stopped Worsening Leukocytosis is concerning can be 2/2 cancer as well Rec's: sputum clx if feasible fu pleural fluid clx untill final cont zosyn fu wbc fu clinically repeat CXR in am anticipate transition to oral abx if better/stable clinically/radiologically and lab mondragon then d/c on Augmentin 500 tid for 1 more week however worsening WBC will warrant further w/u Mayela Lucero RN, MD Feb 04, 2018 14:24
[2018-02-04 17:10] LABS: BILIRUBIN, URINE NEG (NEG); BLOOD, URINE NEG (NEG); GLUCOSE,URINE NEG (NEG); KETONE, URINE NEG (NEG); MUCUS URINE FEW /lpf (OCC); NITRITE,URINE NEG (NEG); SQUAMOUS EPITHELIAL CELL URINE <1 /hpf (0-5); URINE COLOR YELLOW (YELLW/STRAW); URINE LEUKOCYTE ESTERASE NEG (NEG)
[2018-02-04 17:30] VITALS: BP 105/56; PULSE 85; RESP 16; TEMP 98.2; O2SAT 97
--- NOTE | 2018-02-04 17:30 | RADRPT ---
EXAM DATE: 02/04/2018 5:09 PM EDT AGE/SEX: 72 years / Male INDICATIONS: Shortness of breath and cough. CLINICAL DATA: This is the patient's subsequent encounter. Patient reports that signs and symptoms h ave been present for 1 week and indicates a pain score of 0/10. MEDICAL/SURGICAL HISTORY: . Carcinoma, lung. Diabetes mellitus type II. . Right thoracotomy,co jyoti resection,inguinat hernia repair COMPARISON: [facility] – [place], CHEST SINGLE AP, 01/31/2018. . FINDINGS: Patchy diffuse airspace opacities of both lungs again noted. Slightly more confluent consolidation ag ain seen of the right base. Right hilar mass again seen. There is a small to moderate, laterally locu lated right pleural effusion. No pneumothorax demonstrated. Heart size stable, within normal limits. Nasogastric tube has been removed. CONCLUSION: No significant change bilateral parenchymal consolidation and right pleural effusion. Electronically signed by: Arvind Bhat MD 02/04/2018 5:29 PM EDT
[2018-02-04 20:00] VITALS: BP 117/60; PULSE 87; PULSE 88; RESP 16; TEMP 99; O2SAT 92
[2018-02-04] MEDS: TEMAZEPAM 15 MG CAP PO PRN (22:22)
[2018-02-05] VITALS (13 sets, daily range): BP systolic 118–139; BP diastolic 54–74; PULSE 69–101; RESP 16–18; TEMP 97.4–98.9; O2SAT 92–99
[2018-02-05] MEDS: PANTOPRAZOLE SODIUM 40 MG VIAL IV PUSH SCH (00:30)
[2018-02-05] MEDS: PIPERACIL-TAZO 4.5 GM PREMIX 100 ML IV SCH ×5 (01:38→22:36)
[2018-02-05] MEDS: CHLORHEXIDINE GLUCONATE 2 % 1 PACK (2 CLOTHS) TOP SCH (02:45)
[2018-02-05] MEDS: ACETAMINOPHEN/HYDROcodone 325 MG/10 MG TAB PO PRN ×2 (03:29→10:19)
[2018-02-05 04:18] LABS: AUTOMATED NEUTROPHIL # 16.6 TH/MM3 (1.8-7.7); BASOPHIL % 0.2 % (0.0-2.0); EOSINOPHIL # 0.1 TH/MM3 (0-0.4); EOSINOPHIL % 0.4 % (0.0-4.0); HEMATOCRIT 36.7 % (39.0-51.0); HEMOGLOBIN 12.1 GM/DL (13.0-17.0); LYMPH % 7.1 % (9.0-44.0); LYMPHOCYTE # 1.3 TH/MM3 (1.0-4.8); MEAN CELL VOLUME 86.5 FL (80.0-100.0); MEAN CORPUSCULAR HEMOGLOBIN 28.4 PG (27.0-34.0); MEAN CORPUSCULAR HGB CONC 32.9 % (32.0-36.0); MEAN PLATELET VOLUME 7.8 FL (7.0-11.0); MONO % 2.5 % (0.0-8.0); MONOCYTE # 0.5 TH/MM3 (0-0.9); NEUT % 89.8 % (16.0-70.0); PLATELET COUNT 246 TH/MM3 (150-450); RED BLOOD COUNT 4.24 MIL/MM3 (4.50-5.90); RED CELL DISTRIBUTION WIDTH 16.6 % (11.6-17.2); WHITE BLOOD COUNT 18.5 TH/MM3 (4.0-11.0)
[2018-02-05 04:50] LABS: BICARBONATE 26.7 MEQ/L (21.0-32.0); CALCIUM 8.2 MG/DL (8.5-10.1); CREATININE 1.54 MG/DL (0.60-1.30); MAGNESIUM 1.6 MG/DL (1.5-2.5)
--- NOTE | 2018-02-05 06:08 | RADRPT ---
EXAM DATE: 02/05/2018 6:05 AM EDT AGE/SEX: 72 years / Male INDICATIONS: Shortness of breath, possible pulmonary disease. CLINICAL DATA: This is the patient's subsequent encounter. Patient reports that signs and symptoms h ave been present for 1 week and indicates a pain score of 2/10. MEDICAL/SURGICAL HISTORY: Carcinoma, lung. Diabetes mellitus type II. Inguinal hernia repair. Thoracotomy [place] [facility] [place]. . FINDINGS: Clips are seen at the right hilar region. The right hilar region appears somewhat prominent. There is a right pleural effusion. There is underlying interstitial prominence throughout the lungs. The hear t size is normal. There is a vascular stent seen in the right innominate vein region. CONCLUSION: Moderate right pleural effusion. Diffuse interstitial prominence likely related to edema. The patient is likely status post partial right pneumonectomy. Electronically signed by: Arvind Ariza MD 02/05/2018 6:07 AM EDT
[2018-02-05] MEDS: DOCUSATE SODIUM 50 MG/SENNA 8.6 MG TAB PO SCH ×2 (09:00→21:00)
[2018-02-05] MEDS: PROPRANOLOL HCL 20 MG TAB PO SCH ×2 (10:19→21:28)
[2018-02-05] MEDS: PANTOPRAZOLE SOD 40 MG DELAYED RELEASE TAB PO SCH (10:19)
[2018-02-05] MEDS: VENLAFAXINE HCL XR 37.5 MG CAP PO SCH (10:19)
[2018-02-05] MEDS: BUDESONIDE-FORMOTEROL 160/4.5 MCG INHALER INH SCH ×2 (10:20→21:29)
[2018-02-05] MEDS: SODIUM CHLORIDE 0.9% FLUSH 10 ML FLUSH IV FLUSH SCH ×2 (10:20→21:29)
--- NOTE | 2018-02-05 13:21 | HHI.PR ---
Subjective Remarks Pt seen and examined. AFVSS. No acute events overnight. Reports feeling weak and tired. Wants to get out of hospital. C/O dyspnea but stable. No CP, abdominal pain, N/V. Objective Vital Signs Date Time Temp Pulse Resp B/P (MAP) Pulse Ox O2 Delivery O2 Flow Rate FiO2 02/05/18 08:37 92 Nasal Cannula 2.00 02/05/18 08:35 82 02/05/18 08:05 94 02/05/18 07:55 97.4 74 18 139/73 (95) 92 02/05/18 04:00 97.9 81 16 134/74 (94) 93 02/05/18 04:00 79 02/05/18 00:00 75 02/05/18 00:00 98.0 75 16 126/70 (88) 95 02/04/18 20:00 99.0 88 16 117/60 (79) 92 02/04/18 20:00 87 02/04/18 17:30 98.2 85 16 105/56 (72) 97 I/O 02/04/18 02/04/18 02/04/18 02/05/18 02/05/18 02/05/18 07:00 15:00 23:00 07:00 15:00 23:00 Intake Total 600 ml 100 ml 580 ml 340 ml Output Total 925 ml 1150 ml Balance -325 ml 100 ml -570 ml 340 ml Intake Oral 400 ml 480 ml 240 ml IV Total 200 ml 100 ml 100 ml 100 ml Output Urine Total 925 ml 850 ml Stool Total 300 ml # Voids 1 # Bowel Movements 1 Result Diagram: 02/05/18 0333 02/05/18 0333 Objective Remarks GENERAL: Elderly male resting in bed NAD. SKIN: Warm and dry. HEENT: AT/NC. Pupils equal and round. MMM. CHEST: Dressing over R pleural catheter. HEART: RRR no m/r/g. LUNGS: Diminished breath sounds and poor respiratory effort. Significant diminished over right lower lobe. ABDOMEN: +BS, soft, NT, ND. EXTREMITIES: No LE edema. NEURO: Awake and alert. A/P Assessment and Plan 72 YOWM with metastatic lung adenocarcinoma and Crohn's disease admitted on for GI bleed. 1. GI bleed with symptomatic acute blood loss anemia - Hemoglobin 8.8 on admission and dropped to 6.9 within a few hours - s/p 3 units RBCs - Hemoglobin has remained stable around 11-12 - [facility]; patient refusing any further colonoscopy at this time - GI consulted, s/p EGD 01/31 showing esophagitis and erythematous gastritis. Biopsies showing reactive gastropathy and inflammation - Heme/onc following; recommend transfusing to maintain Hb>8 - Protonix 40 mg PO daily - Monitor CBC 2. Postobstructive pneumonitis R lung - WBC went up to 22.6 yesterday and today down slightly to 18.5 - Remains afebrile - Repeat blood culture 02/04 negative so far - Repeat CXR this AM showing a moderate R pleural effusion and diffuse interstitial prominence likely related to edema - ID following, on Zosyn - Pleural fluid culture negative - 1 out of 4 blood cultures from 01/29 with staph epidermidis, likely contaminant - Pleural drain in place 3. Acute on chronic kidney disease - Creatinine stabilizing around 1.4-1.5 - Continue to monitor and avoid nephrotoxic agents 4. 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 Crohn's disease - S/P colectomy with colostomy - Not an acute exacerbation at this time 6. COPD - Continue home Symbicort - Supplemental O2 - DuoNeb PRN 7. Depression - Continue home Effexor 8. HTN - Stable, continue home propranolol DVT prophylaxis: SCDs Discharge Planning Once cleared by Winnie Kaufman MD Feb 05, 2018 13:21
[2018-02-05] MEDS ORDERED: ACETAMINOPHEN/HYDROcodone 325 MG/5 MG TAB PO PRN (14:15)
[2018-02-05] MEDS: ACETAMINOPHEN/HYDROcodone 325 MG/5 MG TAB PO PRN ×2 (17:08→22:34)
[2018-02-05] MEDS: TEMAZEPAM 15 MG CAP PO PRN (22:34)
[2018-02-06] VITALS: BP 121/60; PULSE 70; PULSE 82; RESP 16; TEMP 97.6; O2SAT 95
[2018-02-06] MEDS: ACETAMINOPHEN/HYDROcodone 325 MG/5 MG TAB PO PRN (03:37)
[2018-02-06] MEDS: CHLORHEXIDINE GLUCONATE 2 % 1 PACK (2 CLOTHS) TOP SCH (03:58)
[2018-02-06 04:00] VITALS: BP 142/75; PULSE 78; PULSE 85; RESP 16; TEMP 98; O2SAT 92
[2018-02-06] MEDS: PIPERACIL-TAZO 4.5 GM PREMIX 100 ML IV SCH (06:35)
[2018-02-06 07:00] VITALS: PULSE 79
[2018-02-06 08:14] LABS: AUTOMATED NEUTROPHIL # 16.8 TH/MM3 (1.8-7.7); BASOPHIL % 0.2 % (0.0-2.0); EOSINOPHIL # 0.1 TH/MM3 (0-0.4); EOSINOPHIL % 0.5 % (0.0-4.0); HEMATOCRIT 36.7 % (39.0-51.0); HEMOGLOBIN 11.9 GM/DL (13.0-17.0); LYMPH % 8.8 % (9.0-44.0); LYMPHOCYTE # 1.7 TH/MM3 (1.0-4.8); MEAN CELL VOLUME 86.5 FL (80.0-100.0); MEAN CORPUSCULAR HGB CONC 32.3 % (32.0-36.0); MEAN PLATELET VOLUME 7.8 FL (7.0-11.0); MONO % 2.6 % (0.0-8.0); MONOCYTE # 0.5 TH/MM3 (0-0.9); NEUT % 87.9 % (16.0-70.0); PLATELET COUNT 294 TH/MM3 (150-450); RED BLOOD COUNT 4.25 MIL/MM3 (4.50-5.90); RED CELL DISTRIBUTION WIDTH 16.7 % (11.6-17.2); WHITE BLOOD COUNT 19.1 TH/MM3 (4.0-11.0)
[2018-02-06 08:57] VITALS: BP 138/84; PULSE 100; RESP 18; TEMP 97.4; O2SAT 92
[2018-02-06] MEDS: DOCUSATE SODIUM 50 MG/SENNA 8.6 MG TAB PO SCH (09:00)
[2018-02-06] MEDS: SODIUM CHLORIDE 0.9% FLUSH 10 ML FLUSH IV FLUSH SCH (09:05)
[2018-02-06] MEDS: PROPRANOLOL HCL 20 MG TAB PO SCH (09:05)
[2018-02-06] MEDS: VENLAFAXINE HCL XR 37.5 MG CAP PO SCH (09:05)
[2018-02-06] MEDS: PANTOPRAZOLE SOD 40 MG DELAYED RELEASE TAB PO SCH (09:05)
[2018-02-06] MEDS: BUDESONIDE-FORMOTEROL 160/4.5 MCG INHALER INH SCH (09:07)
[2018-02-06 11:29] VITALS: O2SAT 92
[2018-02-06 11:46] VITALS: BP 143/77; PULSE 80; RESP 18; TEMP 97.8; O2SAT 95
[2018-02-06] MEDS ORDERED: WHEEMIS3 (11:49)
[2018-02-06] MEDS ORDERED: AUGM500T7 PO ×2 (11:50→12:40)
[2018-02-06] MEDS ORDERED: PANT40TA3 PO (11:53)
--- NOTE | 2018-02-06 12:36 | HHI.IDPN ---
Subjective Subjective Remarks afebrile wants to go home feeels better Antibiotics zosyn Allergies: Coded Allergies: No Known Allergies (Unverified , 04/26/16) Objective . Vital Signs Date Time Temp Pulse Resp B/P (MAP) Pulse Ox O2 Delivery O2 Flow Rate FiO2 02/06/18 11:46 97.8 80 18 143/77 (99) 95 02/06/18 11:29 92 Nasal Cannula 2.00 02/06/18 08:57 97.4 100 18 138/84 (102) 92 02/06/18 07:00 79 02/06/18 04:00 98.0 78 16 142/75 (97) 92 02/06/18 04:00 85 02/06/18 00:00 97.6 70 16 121/60 (80) 95 02/06/18 00:00 82 02/05/18 21:17 99 Nasal Cannula 2.00 02/05/18 20:00 78 02/05/18 20:00 98.9 70 16 131/70 (90) 98 02/05/18 16:30 97.8 74 16 123/54 (77) 94 02/05/18 16:00 81 02/05/18 13:21 70 02/05/18 12:30 97.8 74 18 118/58 (78) 98 02/06/18 02/06/18 02/07/18 15:00 23:00 07:00 Intake Total 480 ml Balance 480 ml Intake Oral 480 ml # Voids 4 . Laboratory Tests Test 02/05/18 03:33 02/06/18 07:56 White Blood Count 18.5 TH/MM3 19.1 TH/MM3 Red Blood Count 4.24 MIL/MM3 4.25 MIL/MM3 Hemoglobin 12.1 GM/DL 11.9 GM/DL Hematocrit 36.7 % 36.7 % Mean Corpuscular Volume 86.5 FL 86.5 FL Mean Corpuscular Hemoglobin 28.4 PG 28.0 PG Mean Corpuscular Hemoglobin Concent 32.9 % 32.3 % Red Cell Distribution Width 16.6 % 16.7 % Platelet Count 246 TH/MM3 294 TH/MM3 Mean Platelet Volume 7.8 FL 7.8 FL Neutrophils (%) (Auto) 89.8 % 87.9 % Lymphocytes (%) (Auto) 7.1 % 8.8 % Monocytes (%) (Auto) 2.5 % 2.6 % Eosinophils (%) (Auto) 0.4 % 0.5 % Basophils (%) (Auto) 0.2 % 0.2 % Neutrophils # (Auto) 16.6 TH/MM3 16.8 TH/MM3 Lymphocytes # (Auto) 1.3 TH/MM3 1.7 TH/MM3 Monocytes # (Auto) 0.5 TH/MM3 0.5 TH/MM3 Eosinophils # (Auto) 0.1 TH/MM3 0.1 TH/MM3 Basophils # (Auto) 0.0 TH/MM3 0.0 TH/MM3 CBC Comment DIFF FINAL DIFF FINAL Differential Comment Laboratory Tests Test 02/05/18 03:33 Blood Urea Nitrogen 10 MG/DL Creatinine 1.54 MG/DL Random Glucose 112 MG/DL Calcium Level 8.2 MG/DL Magnesium Level 1.6 MG/DL Sodium Level 141 MEQ/L Potassium Level 3.4 MEQ/L Chloride Level 103 MEQ/L Carbon Dioxide Level 26.7 MEQ/L Anion Gap 11 MEQ/L Estimat Glomerular Filtration Rate 45 ML/MIN Microbiology Date/Time Source Procedure Growth Status 02/04/18 15:09 Blood Peripheral Aerobic Blood Culture - Preliminary NO GROWTH IN 2 DAYS Resulted 02/04/18 15:09 Blood Peripheral Anaerobic Blood Culture - Preliminary NO GROWTH IN 2 DAYS Resulted 02/04/18 15:04 Blood Peripheral Aerobic Blood Culture - Preliminary NO GROWTH IN 2 DAYS Resulted 02/04/18 15:04 Blood Peripheral Anaerobic Blood Culture - Preliminary NO GROWTH IN 2 DAYS Resulted Imaging Last Impressions Chest X-Ray 02/05/18 0600 Signed Impressions: CONCLUSION: Moderate right pleural effusion. Diffuse interstitial prominence likely related to edema. The patient is likely status post partial right pneumonectomy. CT Angiography 01/29/18 0000 Signed Impressions: CONCLUSION: 1. There is no evidence of PE for technique. 2. Loculated right pleural effusion with pleural thickening highly suspicious for pleural-based metastatic disease. 3. Bilateral parenchymal infiltrates may represent pneumonia and on the right side may be partially due to compressed lung and/or postobstructive pneumonitis . Masslike area is seen in right upper lobe extending to the right hilum. Abdomen/Pelvis CT 01/29/18 0000 Signed Impressions: CONCLUSION: Chronic and postsurgical changes and otherwise unremarkable. Physical Exam CONSTITUTIONAL/GENERAL: This is an adequately nourished patient, in no apparent distress. TUBES/LINES/DRAINS: R pleural catheter in place with dressing over SKIN: No jaundice, rashes, immunerable solar elastosis lesions. No wounds seen anteriorly. Skin temperature appropriate. Not diaphoretic. CARDIOVASCULAR: Regular rate and rhythm without murmurs, gallops, or rubs. No JVD. Peripheral pulses symmetric. RESPIRATORY/CHEST: Symmetric, unlabored respirations. Clear to auscultation. Breath sounds diminishe on the R and he has some rhonchi on the right too. No wheezes, rales, GASTROINTESTINAL: Abdomen soft, non-tender, nondistended. No hepato-splenomegaly , or palpable masses. No guarding. Bowel sounds present. Stom,a in place MUSCULOSKELETAL: Extremities without clubbing, cyanosis, or edema. No joint tenderness or effusion noted. No calf tenderness. No mottling or clubbing. NEUROLOGICAL: Awake and alert. Motor and sensory grossly within normal limits. Follows commands. Cognitively sharp. Moves all extremities. PSYCHIATRIC: calm, cooperative Assessment & Plan Remarks . right upper lobe lung cancer postobstructive pneumonitis, R lung - this is most likley what is giving pt low grade fevers/ leukocytosis Low grade coag neg staph bacteremia, likley contaminant Renal insufficiency ? vanco contributing- better after vanco was stopped Persistent Leukocytosis somewaht better can be 2/2 cancer as well Rec's: sputum clx if feasible dc zosyn fu wbc fu clinically repeat CXR in am anticipate transition to oral abx if better/stable clinically/radiologically and lab mondragon then d/c on Augmentin 500 tid for 5 more days fu CBC, temps as o/p consuider repeating CXR however worsening WBC will warrant further w/u OK to dc pt home enedelia RN Mayela Burnette Dr, MD Feb 06, 2018 12:36
[2018-02-06] MEDS ORDERED: AMOXICILLIN/CLAVULANATE K 500 MG TAB PO SCH (14:00)
--- NOTE | 2018-02-06 16:00 | HHI.DS ---
Discharge Summary Admission Date January 30, 2018 at 12:07 am Discharge Date: Feb 06, 2018 Admitting Diagnosis sepsis; pneumonia; upper gi bleed w/ anemia; Lung CA Procedures EGD 1. There was LA Class D esophagitis noted; biopsy was performed 2. There was erythematous gastritis in the gastric body and gastric antrum; biopsy was performed 3. Normal duodenal mucosa in the bulb and second portion of the duodenum 4. Retroflexed views revealed no abnormalities Brief History - From Admission 71-year-old male presents for generalized weakness and feeling anxious. Patient was identified in route to the hospital to be in a sinus tachycardia with a rate of 140 bpm was administered normal saline 400 cc bolus. In the emergency department he was found to be febrile with a temperature of 101F. The patient states he has not felt well since this morning. He has colostomy secondary to previous colectomy due to Crohn's disease. Patient reportedly was [place] in the [place] recently for GI bleed underwent scoping required transfusion but has not had any blood in his stool subsequently. No urinary symptoms no flank pain no skin rash redness warmth joint pain or swelling. Patient was unaware that he had a fever. Patient does have a lung cancer and is currently undergoing chemotherapy every 3 weeks on Tuesday and last chemotherapy was Tuesday of this week. Patient has been on warfarin therapy in the past but denies taking any warfarin at this time. He denies: headache visual disturbance sinus pressure drainage sore throat earache neck pain chest pain shortness of breath productive cough hemoptysis abdominal pain vomiting diarrhea hematemesis coffee-ground emesis melena hematochezia. In the emergency department he vomited large amounts fluid that is positive for Hemoccult. The fluid boluses resuscitation his last H&H was below 7 . He is getting transfused with PRBCs CBC/BMP: 02/06/18 0756 02/05/18 0333 Significant Findings Laboratory Tests Test 02/04/18 04:00 02/04/18 16:20 02/05/18 03:33 02/06/18 07:56 White Blood Count 22.6 TH/MM3 (4.0-11.0) 18.5 TH/MM3 (4.0-11.0) 19.1 TH/MM3 (4.0-11.0) Red Blood Count 3.99 MIL/MM3 (4.50-5.90) 4.24 MIL/MM3 (4.50-5.90) 4.25 MIL/MM3 (4.50-5.90) Hemoglobin 11.4 GM/DL (13.0-17.0) 12.1 GM/DL (13.0-17.0) 11.9 GM/DL (13.0-17.0) Hematocrit 34.2 % (39.0-51.0) 36.7 % (39.0-51.0) 36.7 % (39.0-51.0) Neutrophils (%) (Auto) 91.2 % (16.0-70.0) 89.8 % (16.0-70.0) 87.9 % (16.0-70.0) Lymphocytes (%) (Auto) 5.9 % (9.0-44.0) 7.1 % (9.0-44.0) 8.8 % (9.0-44.0) Neutrophils # (Auto) 20.6 TH/MM3 (1.8-7.7) 16.6 TH/MM3 (1.8-7.7) 16.8 TH/MM3 (1.8-7.7) Creatinine 1.47 MG/DL (0.60-1.30) 1.54 MG/DL (0.60-1.30) Estimat Glomerular Filtration Rate 47 ML/MIN (>89) 45 ML/MIN (>89) Urine Mucus FEW /lpf (OCC) Random Glucose 112 MG/DL (74-106) Calcium Level 8.2 MG/DL (8.5-10.1) Potassium Level 3.4 MEQ/L (3.5-5.1) Imaging Last Impressions Chest X-Ray 02/05/18 0600 Signed Impressions: CONCLUSION: Moderate right pleural effusion. Diffuse interstitial prominence likely related to edema. The patient is likely status post partial right pneumonectomy. CT Angiography 01/29/18 0000 Signed Impressions: CONCLUSION: 1. There is no evidence of PE for technique. 2. Loculated right pleural effusion with pleural thickening highly suspicious for pleural-based metastatic disease. 3. Bilateral parenchymal infiltrates may represent pneumonia and on the right side may be partially due to compressed lung and/or postobstructive pneumonitis . Masslike area is seen in right upper lobe extending to the right hilum. Abdomen/Pelvis CT 01/29/18 0000 Signed Impressions: CONCLUSION: Chronic and postsurgical changes and otherwise unremarkable. PE at Discharge GENERAL: Alert, NAD. SKIN: Warm and dry. HEAD: Normocephalic. EYES: No scleral icterus. No injection or drainage. NECK: Supple, trachea midline. No JVD or lymphadenopathy. CARDIOVASCULAR: Regular rate and rhythm without murmurs, gallops, or rubs. RESPIRATORY: Breath sounds equal bilaterally. No accessory muscle use. GASTROINTESTINAL: Abdomen soft, non-tender, nondistended. MUSCULOSKELETAL: No cyanosis, or edema. BACK: Nontender without obvious deformity. No CVA tenderness. Pt update on day of discharge Patient is doing well. No acute concerns. No fever, chills. Wants to go home. Hospital Course 72 year old male with metastatic lung adenocarcinoma and Crohn's disease admitted on 01/30 for GI bleed. 1. GI bleed with symptomatic acute blood loss anemia - Hemoglobin 8.8 on admission and dropped to 6.9 within a few hours - s/p 3 units RBCs - Hemoglobin has remained stable around 11-12 - [facility]; patient refusing any further colonoscopy at this time - GI consulted, s/p EGD 01/31 showing esophagitis and erythematous gastritis. Biopsies showing reactive gastropathy and inflammation - Heme/onc following; recommend transfusing to maintain Hb>8 - Protonix 40 mg PO daily - Monitor CBC 2. Postobstructive pneumonitis R lung - WBC went up to 22.6 yesterday and today down slightly to 18.5 - Remains afebrile - Repeat blood culture 02/04 negative so far - Repeat CXR this AM showing a moderate R pleural effusion and diffuse interstitial prominence likely related to edema - ID following - received zosyn initially. Based on ID recs, we switched to Augmentin on discharge. - Pleural fluid culture negative - 1 out of 4 blood cultures from 01/29 with staph epidermidis, likely contaminant - Pleural drain in place 3. Acute on chronic kidney disease - Creatinine stabilizing around 1.4-1.5 - Continue to monitor and avoid nephrotoxic agents 4. 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 Crohn's disease - S/P colectomy with colostomy - Not an acute exacerbation at this time 6. COPD - Continue home Symbicort - Supplemental O2 - DuoNeb PRN 7. Depression - Continue home Effexor 8. HTN - Stable, continue home propranolol DVT prophylaxis: SCDs Pt Condition on Discharge: Good Discharge Disposition: Disch w/ Home Health Serv Discharge Time: <= 30 minutes Discharge Instructions DIET: Follow Instructions for: Heart Healthy Diet Activities you can perform: Regular-No Restrictions Follow up Referrals: PCP Follow-up - 1 Week New Orders: CBC WITH DIFF - 1 Week New Medications: Amoxicillin-Clavulanate (Augmentin) 500-125 mg Tab 500 MG PO Q8H for Infection, #15 TAB 0 Refills Wheelchair (Wheelchair) 1 Mis Mis EA .XX DIRECTED, #1 0 Refills Pantoprazole (Pantoprazole) 40 Mg Tab 40 MG PO DAILY for Reflux, #30 TAB 11 Refills Continued Medications: Albuterol 6.7 GM Inh (Proventil Hfa 6.7 GM Inh) 90 Mcg/Act Aer 2 PUFF INH Q4-6H PRN for SHORTNESS OF BREATH, #1 INHALER 0 Refills Budesonide-Formoterol Inh (Symbicort Inh) 160-4.5 Mcg/Act Aero 2 PUFF INH Q12HR, #1 INHALER 0 Refills Cyclobenzaprine (Flexeril) 10 Mg Tab 10 MG PO DAILY for Muscle Spasm, #90 TAB 0 Refills Guaifenesin ER (Mucus Relief ER) 600 Mg Tab 400 MG PO DAILY PRN for CHEST CONGESTION AND/OR COUGH, TAB 0 Refills Hydrocodone-Acetaminophen (Hydrocodone-Acetaminophen) 5-325 mg Tab 1 TAB PO Q4H PRN for PAIN, TAB 0 Refills Magnesium Oxide (Magnesium Oxide) 400 Mg Tab 400 MG PO HS for Nutritional Supplement, TAB 0 Refills Prochlorperazine Maleate (Prochlorperazine Maleate) 10 Mg Tab 10 MG PO Q6H PRN for NAUSEA OR VOMITING, TAB 0 Refills Propranolol (Propranolol) 20 Mg Tab 20 MG PO Q12HR, #60 TAB 0 Refills Venlafaxine (Effexor) 37.5 Mg Tab 37.5 MG PO DAILY, #60 TAB 0 Refills Eneida Bennett DO Feb 06, 2018 4:00 pm
== END 2018-02-06 14:43 | disposition home health service (06) | DRG 871 ==
LOC: NEPC 20:09 → NEDA 01-30 00:07 → HIME 01-30 01:00 → HCIN 02-03 14:58
PROVIDERS: ADMIT Hospitalist; ATTEND Hospitalist
PROC: 30233N1 Transfusion of Nonautologous Red Blood Cells into Peripheral Vein, Percutaneous Approach (ICD-10-PCS; principal; 2018-01-30)
PROC: 0DB58ZX Excision of Esophagus, Via Natural or Artificial Opening Endoscopic, Diagnostic (ICD-10-PCS; 2018-01-31)
PROC: 0DB78ZX Excision of Stomach, Pylorus, Via Natural or Artificial Opening Endoscopic, Diagnostic (ICD-10-PCS; 2018-01-31)
DX: A41.9 Sepsis, unspecified organism (principal); J18.9 Pneumonia, unspecified organism; N17.9 Acute kidney failure, unspecified; J81.1 Chronic pulmonary edema; J91.0 Malignant pleural effusion; E87.2 Acidosis; C34.11 Malignant neoplasm of upper lobe, right bronchus or lung; K50.10 Crohn's disease of large intestine without complications; J44.0 Chronic obstructive pulmonary disease with (acute) lower respiratory infection; D62 Acute posthemorrhagic anemia; K92.2 Gastrointestinal hemorrhage, unspecified; I95.9 Hypotension, unspecified; E11.22 Type 2 diabetes mellitus with diabetic chronic kidney disease; K21.0 Gastro-esophageal reflux disease with esophagitis; K29.70 Gastritis, unspecified, without bleeding; R00.0 Tachycardia, unspecified; M19.90 Unspecified osteoarthritis, unspecified site; N18.9 Chronic kidney disease, unspecified; I12.9 Hypertensive chronic kidney disease with stage 1 through stage 4 chronic kidney disease, or unspecified chronic kidney disease; R65.20 Severe sepsis without septic shock; G47.33 Obstructive sleep apnea (adult) (pediatric); F43.10 Post-traumatic stress disorder, unspecified; F32.9 Major depressive disorder, single episode, unspecified; Z93.3 Colostomy status; Z87.891 Personal history of nicotine dependence; Z85.828 Personal history of other malignant neoplasm of skin; Z80.1 Family history of malignant neoplasm of trachea, bronchus and lung
CPT/HCPCS: 36430; 71045; 71046; 71275; 74177; 80048; 80053; 80069; 80202; 81001; 82550; 82565; 82728; 82948; 83540; 83550; 83605; 83615; 83690; 83735; 83880; 84100; 84484; 85007; 85014; 85018; 85025; 85027; 85610; 85730; 86850; 86900; 86901; 86920; 87040; 87070; 87086; 87186; 87205; 87641; 87804; 88305; 89051; 93005; 93306; 94640; 94664; 96361; 96365; 96367; 96375; C9113; J0330; J0692; J1170; J1940; J2270; J2370; J2543; J2550; J2765; J3370; J7030; J7040; J7050; P9016; Q9967